=== PATIENT | male | born 1960 | race Caucasian/White ===

== ENCOUNTER 2018-03-05 11:54 | Emergency (ER) | payer OTHER ==
[~2018-03-05 11:54] MED LIST: MMW SWISH-SWAL
[2018-03-05 11:58] VITALS: BP 136/78; PULSE 78; RESP 16; TEMP 97.2; O2SAT 100
[2018-03-05] MEDS ORDERED: NEOM1SOL7 RIGHT EAR (12:17)
--- NOTE | 2018-03-05 12:21 | PD ---
HPI Chief Complaint: ENT Complaint Time Seen by Provider: 12:08 Travel History International Travel<30 days: No Contact w/Intl Traveler<30days: No Traveled to known affect area: No History of Present Illness HPI This is a 57-year-old male who presents for evaluation of right ear pain. Symptoms started 3 days ago. He reports a throbbing pain in his right ear canal which is constant worse with otic manipulation. Denies any drainage from the ear. Denies any recent travel or recent swimming. Denies any fevers or chills. Denies any cough, congestion, sore throat. He has no other complaints at this time. PFSH Past Medical History Cancer: Yes (SQUAMOUS CELL MOUTH) Neurologic: Yes (NERVE DAMAGE LEFT SHOULDER ) Past Surgical History Other Surgery: Yes (CANCER REMOVAL FROM LEFT NECK, SHOULDER, TONGUE, LEFT RADICAL NECK DISSECT) Social History Alcohol Use: No Tobacco Use: Yes (/ PPD) Substance Use: No Allergies-Medications (Allergen,Severity, Reaction): Coded Allergies: cephalexin (Unverified Adverse Reaction, Intermediate, RASH, 07/06/17) *MDRO Multi-Drug Resistant Organism (Verified Adverse Reaction, Unknown, ) MRSA back wound 08/2015 Reported Meds & Prescriptions Reported Meds & Active Scripts Active Pistxfsn-Zvrmrsreh-JP Otic Drops 3.5-10,000-1 Mg-Units-% Soln 4 Drop RIGHT EAR QID 7 Days Magic Mouthwash-Diphenhy Formula (Lidocaine/Diphenhydr/Alum/Mg/Simeth) Ml 10 Ml SWISH-SWAL Q3H PRN MAGIC MOUTHWASH=MIX 1/3 VISCOUS LIDOCAINE(60 ML),1/3 MAALOX(60 ML),AND 1/3BENADRYL(60 ML) TO EQUAL 180 ML TOTAL. Review of Systems General / Constitutional: No: Fever, Chills HENT: Positive: Earache, No: Sore Throat, Congestion, Ear Discharge Respiratory: No: Cough Physical Exam Narrative GENERAL: Well-developed well-nourished male in no acute distress SKIN: Warm and dry. HEAD: Atraumatic. Normocephalic. EYES: Pupils equal and round. No scleral icterus. No injection or drainage. ENT: No nasal bleeding or discharge. Mucous membranes pink and moist. The right external ear canal is erythematous and mildly edematous. Unable to visualize tympanic membrane secondary to patient intolerance for examination. Left tympanic membrane appears normal without erythema or fluid levels. Previous tongue surgery noted with some tissue excision. NECK: Trachea midline. No JVD. No lymphadenopathy. Neck supple full range of motion. CARDIOVASCULAR: Regular rate and rhythm. No murmur appreciated. RESPIRATORY: No accessory muscle use. Clear to auscultation. Breath sounds equal bilaterally. Data Data Last Documented VS Vital Signs Date Time Temp Pulse Resp B/P (MAP) Pulse Ox O2 Delivery O2 Flow Rate FiO2 03/05/18 11:58 97.2 78 16 136/78 (97) 100 Orders Orders Ed Discharge Order (03/05/18 12:18) Ketorolac Inj (Toradol Inj) (03/05/18 12:30) MDM Medical Decision Making Medical Screen Exam Complete: Yes Emergency Medical Condition: Yes Medical Record Reviewed: Yes Differential Diagnosis Otitis externa, otitis media, mastoiditis, referred dental pain, malignant otitis externa, foreign body Narrative Course Examination reveals right otitis externa however I am unable to complete the examination of observing the tympanic membrane and ensuring that no foreign bodies are present in the right ear secondary to patient pain during examination. Therefore I have recommended that he follow-up in 1 week with his primary care physician for recheck after he has completed his course of antibiotics. He is stable for discharge. Diagnosis Primary Impression: Right otitis externa Additional Instructions: Medication as prescribed. Tylenol Motrin for pain. Avoid getting water in right ear canal. Follow-up with primary care physician in 1 week. Return for any emergent medical conditions. Med/Other Pt SpecificInfo: Prescription(s) given Scripts Awjeqpox-Pzsjbsycf-TS Otic Drops (Axveuwfp-Phcqofcec-UL Otic Drops) 3.5-10,000- 1 Mg-Units-% Soln 4 DROP RIGHT EAR QID for Infection for 7 Days, BOTTLE 0 Refills Prov: Adrian Graf MD 03/05/18 Disposition: 01 DISCHARGE HOME Condition: Stable Mono Glaser Mar 05, 2018 12:21
[2018-03-05] MEDS ORDERED: KETOROLAC TROMETHAMINE 60 MG/2 ML (IM) VIAL IM ONE (12:30)
== END 2018-03-05 13:03 | disposition home or self-care (01) ==
LOC: NEPD 11:54
DX: H60.91 Unspecified otitis externa, right ear (principal); F17.200 Nicotine dependence, unspecified, uncomplicated
CPT/HCPCS: 96372; 99283; J1885

== ENCOUNTER 2018-03-16 14:59 | Emergency (ER) | payer OTHER ==
[~2018-03-16 14:59] MED LIST changes: +NEOM1SOL7 RIGHT EAR
[2018-03-16 15:09] VITALS: BP 143/69; PULSE 72; RESP 16; TEMP 98.2; O2SAT 100
[2018-03-16] MEDS ORDERED: MUPI2%T TOPICAL (15:42)
[2018-03-16] MEDS ORDERED: BACT800T5 PO (15:42)
--- NOTE | 2018-03-16 15:49 | PD ---
HPI Chief Complaint: Skin Problem Time Seen by Provider: 15:21 Travel History International Travel<30 days: No Contact w/Intl Traveler<30days: No Traveled to known affect area: No History of Present Illness HPI 57-year-old male with history of MRSA presents to the emergency room for evaluation of multiple skin lesions that started a few days ago. Patient states he bumped his right lower leg against a chair and a short time later developed a small abscess. The abscess began to drain on its own. Patient reports significant, throbbing pain around the ankle that is worse when he stands up. He has not taken anything for symptoms. He also reports no drainage behind his left ear and on the outer part of his right ear. States it is also extremely uncomfortable. He stopped showering because he thought the water was worsening. He denies any fever, chills, nausea, vomiting. PFSH Past Medical History Medical History: Denies Significant Hx Cancer: Yes (SQUAMOUS CELL MOUTH) Neurologic: Yes (NERVE DAMAGE LEFT SHOULDER ) Tetanus Vaccination: < 5 Years Past Surgical History Other Surgery: Yes (CANCER REMOVAL FROM LEFT NECK, SHOULDER, TONGUE, LEFT RADICAL NECK DISSECT) Social History Alcohol Use: No Tobacco Use: Yes (1/2 PPD) Substance Use: No Allergies-Medications (Allergen,Severity, Reaction): Coded Allergies: cephalexin (Unverified Adverse Reaction, Intermediate, RASH, 03/16/18) *MDRO Multi-Drug Resistant Organism (Verified Adverse Reaction, Unknown, ) MRSA back wound 08/2015 Reported Meds & Prescriptions Reported Meds & Active Scripts Active Bactrim DS (Sulfamethoxazole-Trimethoprim) 800-160 Mg Tab 1 Tab PO BID Bactroban Topical (Mupirocin) 22 Gm Cream 1 Applic TOPICAL BID Review of Systems Except as stated in HPI: all other systems reviewed are Neg Physical Exam Narrative GENERAL: Well-nourished, well-developed male in no acute distress. Afebrile. Ambulatory. SKIN: Focused skin assessment warm/dry. Significant yellow, crusting, and purulent drainage originating from a wound at the top of the left ear and also at the opening of the right ear canal. There is an indurated area in the right lower funk which measures about 2 cm in diameter. It is fluctuant with pointing and spontaneous drainage. There is surrounding erythema but no lymphangitis. HEAD: Normocephalic. EYES: No scleral icterus. No injection or drainage. NECK: Supple, trachea midline. No JVD or lymphadenopathy. EARS: There is significant impetiginization of the right external ear canal. Bilateral tympanic membranes without erythema, dullness or perforation. CARDIOVASCULAR: Regular rate and rhythm without murmurs, gallops, or rubs. RESPIRATORY: Breath sounds equal bilaterally. No accessory muscle use. Data Data Last Documented VS Vital Signs Date Time Temp Pulse Resp B/P (MAP) Pulse Ox O2 Delivery O2 Flow Rate FiO2 03/16/18 15:09 98.2 72 16 143/69 (93) 100 MDM Medical Decision Making Medical Screen Exam Complete: Yes Emergency Medical Condition: Yes Medical Record Reviewed: Yes Differential Diagnosis Abscess, impetigo, MRSA, cellulitis Narrative Course 57-year-old male presents to the emergency room for evaluation of multiple skin lesions throughout his body. Physical exam reveals 7 cm in diameter cellulitis to the right anterior funk without abscess. It is spontaneously draining. No lymphangitis. He also has impetiginization of bilateral ear pinnae. Patient has history of MRSA susceptible to Bactrim. He will be discharged with prescriptions for Bactrim and mupirocin. Told to follow-up with a primary care physician or return for worsening symptoms. He understands and agrees to plan. Diagnosis Primary Impression: Cellulitis of right leg Additional Impression: Impetigo Referrals: Primary Care Physician Additional Instructions: Apply ointment to the wounds around the ears. Bactrim as directed, until gone. Follow-up with a primary care physician. Return for worsening symptoms. Med/Other Pt SpecificInfo: Prescription(s) given Scripts Sulfamethoxazole-Trimethoprim (Bactrim DS) 800-160 Mg Tab 1 TAB PO BID for Infection, #20 TAB 0 Refills Prov: Lisa Verdugo DO 03/16/18 Mupirocin Topical (Bactroban Topical) 22 Gm Cream 1 APPLIC TOPICAL BID for Mgmt Bacterial Infection, #1 TUBE 0 Refills Prov: Lisa Verdugo DO 03/16/18 Disposition: 01 DISCHARGE HOME Condition: Stable Chandni Ferraro Mar 16, 2018 15:49
== END 2018-03-16 16:03 | disposition home or self-care (01) ==
LOC: NEPK 14:59
DX: L03.115 Cellulitis of right lower limb (principal); L01.00 Impetigo, unspecified; F17.200 Nicotine dependence, unspecified, uncomplicated; Z86.14 Personal history of Methicillin resistant Staphylococcus aureus infection
CPT/HCPCS: 99283

== ENCOUNTER 2018-04-27 08:04 | Inpatient (IN) | payer OTHER, MEDICARE ==
[~2018-04-27] VITALS: Ht 188 cm; Wt 85.2 kg
[~2018-04-27 08:04] MED LIST changes: +BACT800T5 PO; -MMW SWISH-SWAL; +MUPI2%T TOPICAL; -NEOM1SOL7 RIGHT EAR
[2018-04-27 08:08] VITALS: BP 140/81; PULSE 71; RESP 20; TEMP 96.6; O2SAT 98
[2018-04-27] MEDS ORDERED: VANCOMYCIN INJ 1,000 MG in SODIUM CHLOR 0.9% 250 ML INJ 250 ML IV ONE (09:30)
--- NOTE | 2018-04-27 09:34 | PD ---
HPI Chief Complaint: Skin Problem Time Seen by Provider: 09:09 Travel History International Travel<30 days: No Contact w/Intl Traveler<30days: No Traveled to known affect area: No History of Present Illness HPI This patient complains of infection in his right foot. Started 5 days ago when he scraped it and open up the skin. He has history of MRSA infections. He denies fever. Periodically drains some fluid. Patient has history of head and neck squamous cell cancer. The cancer has recently returned according the patient. He seen oncology recently and is getting referred to ENT. Symptom severity is moderate. He has pain in the right foot. He is got redness and warmth. No alleviating factors. No exacerbating factors. PFSH Past Medical History Anxiety: Yes Cancer: Yes (SQUAMOUS CELL MOUTH) Diminished Hearing: No Neurologic: Yes (NERVE DAMAGE LEFT SHOULDER ) Tetanus Vaccination: > 5 Years Influenza Vaccination: Yes Past Surgical History Oral Surgery: Yes Tonsillectomy: Yes Other Surgery: Yes (CANCER REMOVAL FROM LEFT NECK, SHOULDER, TONGUE, LEFT RADICAL NECK DISSECT) Social History Alcohol Use: No Tobacco Use: Yes (/2 PPD) Substance Use: No Allergies-Medications (Allergen,Severity, Reaction): Coded Allergies: cephalexin (Verified Adverse Reaction, Intermediate, RASH, 04/27/18) *MDRO Multi-Drug Resistant Organism (Verified Adverse Reaction, Unknown, ) MRSA back wound 08/2015 Reported Meds & Prescriptions Reported Meds & Active Scripts Active No Active Prescriptions or Reported Medications Review of Systems General / Constitutional: No: Fever Eyes: No: Visual changes HENT: No: Headaches Cardiovascular: No: Chest Pain or Discomfort Respiratory: No: Shortness of Breath Gastrointestinal: No: Abdominal Pain Genitourinary: No: Dysuria Musculoskeletal: Positive: Pain Skin: No Rash Neurologic: No: Weakness Psychiatric: No: Depression Endocrine: No: Polydipsia Hematologic/Lymphatic: No: Easy Bruising Physical Exam Narrative GENERAL: Well-nourished, well-developed patient in no apparent distress. SKIN: Focused skin assessment reveals no rash and nodules. Skin is Warm and dry. HEAD: Atraumatic. Normocephalic. EYES: Pupils equal and round. No scleral icterus. No injection or drainage. ENT: No nasal bleeding or discharge. Mucous membranes pink and moist. NECK: Trachea midline. No JVD. There is postsurgical scarring in the left side of his neck. There is also a masslike area on the left mandible CARDIOVASCULAR: Regular rate and rhythm. No murmur appreciated. RESPIRATORY: No accessory muscle use. Clear to auscultation. Breath sounds equal bilaterally. GASTROINTESTINAL: Abdomen soft, non-tender, nondistended. Hepatic and splenic margins not palpable. MUSCULOSKELETAL: No obvious deformities. No clubbing. No cyanosis. No edema. There is erythema warmth and tenderness of the dorsum of the right foot. There is a central discolored area as well. No fluctuance or active drainage. NEUROLOGICAL: Awake and alert. No obvious cranial nerve deficits. Motor grossly within normal limits. Normal speech. PSYCHIATRIC: Appropriate mood and affect; insight and judgment normal. Data Data Last Documented VS Vital Signs Date Time Temp Pulse Resp B/P (MAP) Pulse Ox O2 Delivery O2 Flow Rate FiO2 04/27/18 08:08 96.6 71 20 140/81 (100) 98 Orders Orders Iv Access Insert/Monitor (04/27/18 09:17) Blood Culture (04/27/18 09:17) Complete Blood Count With Diff (04/27/18 09:17) Basic Metabolic Panel (Bmp) (04/27/18 09:17) Vancomycin Inj (Vancomycin Inj) (04/27/18 09:30) Foot, Limited (2vws) (04/27/18 ) Morphine Inj (Morphine Inj) (04/27/18 10:30) Ondansetron Odt (Zofran Odt) (04/27/18 10:30) Labs Laboratory Tests Test 04/27/18 09:00 White Blood Count 8.3 TH/MM3 Red Blood Count 4.70 MIL/MM3 Hemoglobin 14.7 GM/DL Hematocrit 43.8 % Mean Corpuscular Volume 93.1 FL Mean Corpuscular Hemoglobin 31.3 PG Mean Corpuscular Hemoglobin Concent 33.6 % Red Cell Distribution Width 12.8 % Platelet Count 188 TH/MM3 Mean Platelet Volume 8.2 FL Neutrophils (%) (Auto) 75.0 % Lymphocytes (%) (Auto) 15.0 % Monocytes (%) (Auto) 7.6 % Eosinophils (%) (Auto) 1.9 % Basophils (%) (Auto) 0.5 % Neutrophils # (Auto) 6.2 TH/MM3 Lymphocytes # (Auto) 1.2 TH/MM3 Monocytes # (Auto) 0.6 TH/MM3 Eosinophils # (Auto) 0.2 TH/MM3 Basophils # (Auto) 0.0 TH/MM3 CBC Comment DIFF FINAL Differential Comment Blood Urea Nitrogen 16 MG/DL Creatinine 1.39 MG/DL Random Glucose 93 MG/DL Calcium Level 8.9 MG/DL Sodium Level 139 MEQ/L Potassium Level 3.9 MEQ/L Chloride Level 104 MEQ/L Carbon Dioxide Level 26.8 MEQ/L Anion Gap 8 MEQ/L Estimat Glomerular Filtration Rate 52 ML/MIN MDM Medical Decision Making Medical Screen Exam Complete: Yes Emergency Medical Condition: Yes Medical Record Reviewed: Yes Differential Diagnosis Cellulitis, abscess, allergic reaction Narrative Course I have reviewed the patient's electronic medical record. Patient is here for infected lesion in February 2018 IV placed and blood cultures obtained Labs sent I gave him 1 g IV vancomycin I reviewed his right foot x-rays which are normal Lab studies are normal. Patient was sent here by his primary physician for admission for IV antibiotics. I think this is reasonable. I think he could benefit from continued IV antibiotics. Also possibly podiatry evaluation to consider I&D. Central area may contain some pus. Call is been placed to hospitalist to discuss Diagnosis Primary Impression: Cellulitis of right foot Admitting Information Admitting Physician Requests: Admit Scripts No Active Prescriptions or Reported Meds Soham Brandon MD Apr 27, 2018 09:34
[2018-04-27 09:42] LABS: AUTOMATED NEUTROPHIL # 6.2 TH/MM3 (1.8-7.7); BASOPHIL % 0.5 % (0.0-2.0); EOSINOPHIL # 0.2 TH/MM3 (0-0.4); EOSINOPHIL % 1.9 % (0.0-4.0); HEMATOCRIT 43.8 % (39.0-51.0); HEMOGLOBIN 14.7 GM/DL (13.0-17.0); LYMPHOCYTE # 1.2 TH/MM3 (1.0-4.8); MEAN CELL VOLUME 93.1 FL (80.0-100.0); MEAN CORPUSCULAR HEMOGLOBIN 31.3 PG (27.0-34.0); MEAN CORPUSCULAR HGB CONC 33.6 % (32.0-36.0); MEAN PLATELET VOLUME 8.2 FL (7.0-11.0); MONO % 7.6 % (0.0-8.0); MONOCYTE # 0.6 TH/MM3 (0-0.9); PLATELET COUNT 188 TH/MM3 (150-450); RED CELL DISTRIBUTION WIDTH 12.8 % (11.6-17.2); WHITE BLOOD COUNT 8.3 TH/MM3 (4.0-11.0)
[2018-04-27 10:08] LABS: BICARBONATE 26.8 MEQ/L (21.0-32.0); CALCIUM 8.9 MG/DL (8.5-10.1); CREATININE 1.39 MG/DL (0.60-1.30)
--- NOTE | 2018-04-27 10:11 | RADRPT ---
EXAM DATE: 04/27/2018 9:59 AM EDT AGE/SEX: 57 years / Male INDICATIONS: Patient hit top of foot on bed frame 5 days ago. Pain, swelling and sore on top of maxi ent's foot. CLINICAL DATA: This is the patient's initial encounter. Patient reports that signs and symptoms have been present for 4 - 6 days and indicates a pain score of 10/10. MEDICAL/SURGICAL HISTORY: None. None. COMPARISON: No prior [facility] exams available for comparison. FINDINGS: Bony structures are intact and in normal alignment. Osseous density is normal. Soft tissues are unre markable. No radiopaque foreign bodies seen. CONCLUSION: Negative examination Electronically signed by: Te Harrell MD 04/27/2018 10:09 AM EDT
[2018-04-27] MEDS ORDERED: ONDANSETRON ODT 4 MG TAB PO ONE (10:30)
[2018-04-27] MEDS ORDERED: MORPHINE SULFATE 4 MG/ML INJ IV PUSH ONE (10:30)
[2018-04-27 12:00] VITALS: BP 116/67; PULSE 60; RESP 17; O2SAT 96
--- NOTE | 2018-04-27 12:14 | HHI.HP ---
[facility] Unknown Admission Diagnosis R foot cellulitis Diagnoses: Travel History International Travel<30 Days: No Contact w/Intl Traveler <30 Da: No Traveled to Known Affected Are: No History of Present Illness 57 years old male presented to the ED with a right dorsal foot infection which started 5 days ago after he scraped his foot with his own bed, patient was referred from his PCP office to get IV antibiotic for what suspecting MRSA infection, patient denied significant fever or chills he reported severe pain in his foot close to 9 out of 10, he reported multiple area of skin abscess and skin infection over his called arms chest and legs in different age of healing some of it with crusted drainage also suspecting of's strep infection. 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 Left shoulder surgery Allergies: Coded Allergies: cephalexin (Verified Adverse Reaction, Intermediate, RASH, 04/27/18) *MDRO Multi-Drug Resistant Organism (Verified Adverse Reaction, Unknown, ) MRSA back wound 08/2015 Family History Brother of esophageal cancer, grand parent of lymphoma or leukemia Social History Smoke half pack per day, he quit drinking alcohol [address] Physical Exam Vital Signs Vital Signs Date Time Temp Pulse Resp B/P (MAP) Pulse Ox O2 Delivery O2 Flow Rate FiO2 04/27/18 08:08 96.6 71 20 140/81 (100) 98 Physical Exam GENERAL: This is a well-nourished, well-developed patient, in no apparent distress. SKIN: Right foot dorsal surface wound infection with erythema about 10 cm tenderness, the center is with bloody drainage, also patient has multiple honey crusted scallop infection and the run the left ear HEAD: Atraumatic. Normocephalic. EYES: Pupils equal round and reactive. Extraocular motions intact. No scleral icterus. ENT: Nose without bleeding, or drainage, Airway patent. NECK: Trachea midline. Supple CARDIOVASCULAR: Regular rate and rhythm without murmurs, gallops, or rubs. RESPIRATORY: Fair air entry bilaterally. No wheezes, rales, or rhonchi. GASTROINTESTINAL: Abdomen soft, non-tender, nondistended. Positive bowel sounds MUSCULOSKELETAL: Extremities without clubbing, cyanosis, or edema. Pedal pulses appreciated, right foot infection as mentioned above NEUROLOGICAL: Awake and alert. Moves all extremity. Normal speech.no focal neurological deficit Laboratory Laboratory Tests Test 04/27/18 09:00 White Blood Count 8.3 Red Blood Count 4.70 Hemoglobin 14.7 Hematocrit 43.8 Mean Corpuscular Volume 93.1 Mean Corpuscular Hemoglobin 31.3 Mean Corpuscular Hemoglobin Concent 33.6 Red Cell Distribution Width 12.8 Platelet Count 188 Mean Platelet Volume 8.2 Neutrophils (%) (Auto) 75.0 Lymphocytes (%) (Auto) 15.0 Monocytes (%) (Auto) 7.6 Eosinophils (%) (Auto) 1.9 Basophils (%) (Auto) 0.5 Neutrophils # (Auto) 6.2 Lymphocytes # (Auto) 1.2 Monocytes # (Auto) 0.6 Eosinophils # (Auto) 0.2 Basophils # (Auto) 0.0 CBC Comment DIFF FINAL Differential Comment Blood Urea Nitrogen 16 Creatinine 1.39 Random Glucose 93 Calcium Level 8.9 Sodium Level 139 Potassium Level 3.9 Chloride Level 104 Carbon Dioxide Level 26.8 Anion Gap 8 Estimat Glomerular Filtration Rate 52 Date/Time Source Procedure Growth Status 04/27/18 09:10 Blood Peripheral Aerobic Blood Culture Pending Received 04/27/18 09:10 Blood Peripheral Anaerobic Blood Culture Pending Received Result Diagram: 04/27/18 0904/27/18 09 Imaging Last Impressions Foot X-Ray 04/27/18 0000 Signed Impressions: CONCLUSION: Negative examination Caprini VTE Risk Assessment Caprini VTE Risk Assessment: Mod/High Risk (score >= 2) Caprini Risk Assessment Model Point Value = 1 Point Value = 2 Point Value = 3 Point Value = 5 Age 41-60 Minor surgery BMI > 25 kg/m2 Swollen legs Varicose veins or History of unexplained or recurrent spontaneous Oral contraceptives or hormone replacement Sepsis (< 1 month) Serious lung disease, including pneumonia (< 1 month) Abnormal pulmonary function Acute myocardial infarction Congestive heart failure (< 1 month) History of inflammatory bowel disease Medical patient at bed rest Age 61-74 Arthroscopic surgery Major open surgery (> 45 min) Laparoscopic surgery (> 45 min) Malignancy Confined to bed (> 72 hours) Immobilizing plaster cast Central venous access Age >= 75 History of VTE Family history of VTE Factor V Leiden Prothrombin [id number] Lupus anticoagulant Anticardiolipin antibodies Elevated serum homocysteine Heparin-induced thrombocytopenia Other congenital or acquired thrombophilia Stroke (< 1 month) Elective arthroplasty Hip, pelvis, or leg fracture Acute spinal cord injury (< 1 month) Prophylaxis Regimen Total Risk Factor Score Risk Level Prophylaxis Regimen 0-1 Low Early ambulation 2 Moderate Order ONE of the following: *Sequential Compression Device (SCD) *Heparin 5000 units SQ BID 3-4 Higher Order ONE of the following medications: *Heparin 5000 units SQ TID *Enoxaparin/Lovenox 40 mg SQ daily (WT < 150 kg, CrCl > 30 mL/min) *Enoxaparin/Lovenox 30 mg SQ daily (WT < 150 kg, CrCl > 10-29 mL/min) *Enoxaparin/Lovenox 30 mg SQ BID (WT < 150 kg, CrCl > 30 mL/min) AND/OR *Sequential Compression Device (SCD) 5 or more Highest Order ONE of the following medications: *Heparin 5000 units SQ TID (Preferred with Epidurals) *Enoxaparin/Lovenox 40 mg SQ daily (WT < 150 kg, CrCl > 30 mL/min) *Enoxaparin/Lovenox 30 mg SQ daily (WT < 150 kg, CrCl > 10-29 mL/min) *Enoxaparin/Lovenox 30 mg SQ BID (WT < 150 kg, CrCl > 30 mL/min) AND *Sequential Compression Device (SCD) Assessment and Plan Assessment and Plan 57 years old male with history of oral squamous cell carcinoma, and multiple skin infection presented today with Right dorsal surface foot cellulitis/abscess with severe pain Multiple skin infection/crusted drainage from lesion rule out MRSA/strep infection H/O oral squamous cell carcinoma Tobacco abuse DVT prophylaxis will place on chemical with heparin due to history of cancer in the past, start tomorrow in case will need drainage I&D Plan: Admit for observation Start on vancomycin with pharmacy to dose Contact isolation Pain management with Percocet and morphine Consult podiatry for possible need for I&D Consult ID for chronic skin infection possibly MRSA DVT prophylaxis with heparin Benjamin Yarbrough MD Apr 27, 2018 12:14
[2018-04-27] MEDS ORDERED: SENNOSIDES 8.6 MG TAB PO PRN (12:15)
[2018-04-27] MEDS ORDERED: Vancomycin Consult Pharmacy 1 EA OTHER SCH (12:15)
[2018-04-27] MEDS ORDERED: MAGNESIUM HYDROXIDE SUSP 30 ML CUP PO PRN (12:15)
[2018-04-27] MEDS ORDERED: NALOXONE HCL 0.4 MG/ML AMP IV PUSH PRN (12:15)
[2018-04-27] MEDS: HEPARIN SODIUM - SQ 10,000 UNITS/ML VIAL SQ SCH ×2 (13:00→21:52)
[2018-04-27 14:00] VITALS: BP 118/67; PULSE 65; RESP 19; O2SAT 97
[2018-04-27 14:40] VITALS: BP 127/79; PULSE 61; RESP 18; TEMP 98.8; O2SAT 100
[2018-04-27 16:52] VITALS: BP 94/52; PULSE 64; TEMP 98.2; O2SAT 99
[2018-04-27] MEDS: ACETAMINOPHEN/HYDROcodone 325 MG/10 MG TAB PO PRN (18:13)
[2018-04-27 20:00] VITALS: BP 85/52; PULSE 59; RESP 20; TEMP 98.8; O2SAT 97
[2018-04-27] MEDS: DOCUSATE SODIUM 50 MG/SENNA 8.6 MG TAB PO SCH (21:00)
[2018-04-28] VITALS (7 sets, daily range): BP systolic 82–108; BP diastolic 49–64; PULSE 44–52; RESP 12–20; TEMP 95.5–98.8; O2SAT 97–100
[2018-04-28] MEDS ORDERED: KETOROLAC TROMETHAMINE 30 MG/ML (IVP) VIAL IV PUSH ONE (01:30)
[2018-04-28] MEDS: VANCOMYCIN INJ 1,250 MG in SODIUM CHLOR 0.9% 250 ML INJ 250 ML IV SCH ×2 (01:52→23:06)
[2018-04-28] MEDS: SODIUM CHLOR 0.9% 1000 ML INJ 1,000 ML IV SCH ×2 (01:52→14:51)
[2018-04-28] MEDS: HEPARIN SODIUM - SQ 10,000 UNITS/ML VIAL SQ SCH ×3 (06:11→21:00)
--- NOTE | 2018-04-28 09:59 | HHI.PR ---
Subjective Remarks Follow-up foot wound, cellulitis. The patient reports pain in his right foot. He states that he was not able to get his pain medication overnight because of low blood pressure. He denies fever, chills, night sweats. He has multiple wounds including on his nose and behind his left ear. Objective Vitals Vital Signs Date Time Temp Pulse Resp B/P (MAP) Pulse Ox O2 Delivery O2 Flow Rate FiO2 04/28/18 09:09 97.9 45 12 100/61 (74) 97 04/28/18 05:10 97.5 52 20 82/50 (61) 97 04/28/18 00:53 95.5 52 18 102/62 (75) 97 04/27/18 20:00 98.8 59 20 85/52 (63) 97 04/27/18 16:52 98.2 64 94/52 (66) 99 04/27/18 14:40 98.8 61 18 127/79 (95) 100 04/27/18 14:35 04/27/18 14:00 65 19 118/67 (84) 97 Room Air 04/27/18 12:00 60 17 116/67 (83) 96 Room Air I/O 04/27/18 04/27/18 04/27/18 04/28/18 04/28/18 04/28/18 07:00 15:00 23:00 07:00 15:00 23:00 Intake Total 250 ml 480 ml Output Total 2000 ml Balance 250 ml -1520 ml Intake Oral 480 ml IV Total 250 ml Output Urine Total 2000 ml # Bowel Movements 0 Result Diagram: 04/27/18 0900 04/27/18 0900 Imaging Last Impressions Foot X-Ray 04/27/18 0000 Signed Impressions: CONCLUSION: Negative examination Objective Remarks General: No acute distress. Heart: Regular rate and rhythm. No murmur. Lungs: Clear to auscultation bilaterally. No wheezes, rales, or rhonchi. Breathing is nonlabored. Abdomen: Soft, nontender, nondistended. Extremities: No left lower extremity edema. Right lower extremity with edema extending from the foot to the mid funk. There is tenderness to palpation of the dorsum of the foot as well as the anterior lower leg. There is erythema surrounding an open wound on the dorsum of the foot. There is drainage present on the bandage. Psych: Alert and oriented. Neuro: Normal speech. No focal deficits noted. Procedures None Urinary Catheter: No Vascular Central Line Catheter: No A/P Assessment and Plan 1. Right foot cellulitis/abscess, wound: Patient reporting significant pain in the foot. He has history of MRSA infection previously. Continue vancomycin. Infectious disease consult pending. Consult podiatry. 2. Hypotension: Continue IV fluids. Blood pressure is slightly better this morning. 3. Renal insufficiency: Uncertain if acute or chronic. Monitor BUN and creatinine. Labs are pending today. Continue IV fluids. 4. Multiple skin lesions: Patient has areas of scab with surrounding erythema on the nose and behind the left ear. There is also a scabbed wound on the external left ear. 5. DVT prophylaxis: Heparin. Soham Burnette MD Apr 28, 2018 09:59
[2018-04-28 11:38] LABS: AUTOMATED NEUTROPHIL # 2.5 TH/MM3 (1.8-7.7); BASOPHIL % 0.7 % (0.0-2.0); EOSINOPHIL # 0.1 TH/MM3 (0-0.4); EOSINOPHIL % 3.6 % (0.0-4.0); HEMOGLOBIN 12.6 GM/DL (13.0-17.0); LYMPH % 23.5 % (9.0-44.0); LYMPHOCYTE # 0.9 TH/MM3 (1.0-4.8); MEAN CELL VOLUME 91.1 FL (80.0-100.0); MEAN CORPUSCULAR HEMOGLOBIN 30.2 PG (27.0-34.0); MEAN CORPUSCULAR HGB CONC 33.2 % (32.0-36.0); MEAN PLATELET VOLUME 7.8 FL (7.0-11.0); MONO % 8.1 % (0.0-8.0); MONOCYTE # 0.3 TH/MM3 (0-0.9); NEUT % 64.1 % (16.0-70.0); PLATELET COUNT 147 TH/MM3 (150-450); RED BLOOD COUNT 4.17 MIL/MM3 (4.50-5.90); RED CELL DISTRIBUTION WIDTH 12.9 % (11.6-17.2); WHITE BLOOD COUNT 3.9 TH/MM3 (4.0-11.0)
[2018-04-28 12:01] LABS: CALCIUM 8.7 MG/DL (8.5-10.1); CREATININE 1.42 MG/DL (0.60-1.30)
--- NOTE | 2018-04-28 12:56 | PD.ID.CON ---
History of Present Illness Service ID Consult Requested By Dr Yarbrough Reason for Consult R foot infx Primary Care Physician Unknown Diagnoses: History of Present Illness 57 yo male noel h/o recurrent oral cancer presented with draining lesion on the top of his R foot. 5 days prior bumped it over his bed He co pain , redness, swelling His BP is low He endorses multiple staph skin infections in the last few mos No fever WBC is low. 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 Past Medical History oral ca, recurrent Past Surgical History oral surgery Active Ordered Medications Medications where reviewed in EMR Antibiotics Include: vanco Family History reviewed non contirbutory to current issue Social History tobacco + 1/2 ppd denies ETOH denies drugs Physical Exam Vital Signs Vital Signs Date Time Temp Pulse Resp B/P (MAP) Pulse Ox O2 Delivery O2 Flow Rate FiO2 04/28/18 11:53 98.1 50 16 84/49 (61) 98 04/28/18 09:09 97.9 45 12 100/61 (74) 97 04/28/18 05:10 97.5 52 20 82/50 (61) 97 04/28/18 00:53 95.5 52 18 102/62 (75) 97 04/27/18 20:00 98.8 59 20 85/52 (63) 97 04/27/18 16:52 98.2 64 94/52 (66) 99 04/27/18 14:40 98.8 61 18 127/79 (95) 100 04/27/18 14:35 04/27/18 14:00 65 19 118/67 (84) 97 Room Air Physical Exam CONSTITUTIONAL/GENERAL: This is an adequately nourished patient, in no apparent distress. TUBES/LINES/DRAINS: SKIN: No jaundice, rashes, or lesions. Ecchymoses on upper extremities. No wounds seen anteriorly. Skin temperature appropriate. Not diaphoretic. HEAD: Atraumatic. Normocephalic. EYES: Pupils equal and round and reactive. Extraocular motions intact. No scleral icterus. No injection or drainage. Fundi not examined. ENT: Hearing grossly normal. Nose without bleeding or purulent drainage. Dentition poor Partially excised toungue. Oral ulcer Firm small regional lymph nodules NECK: Trachea midline. Supple, nontender. No palpable thyroid enlargement or nodularity. CARDIOVASCULAR: Regular rate and rhythm without murmurs, gallops, or rubs. No JVD. Peripheral pulses symmetric. RESPIRATORY/CHEST: Symmetric, unlabored respirations. Clear to auscultation. Breath sounds equal bilaterally. No wheezes, rales, or rhonchi. GASTROINTESTINAL: Abdomen soft, non-tender, nondistended. No hepato-splenomegaly , or palpable masses. No guarding. Bowel sounds present. GENITOURINARY: Without palpable bladder distension . MUSCULOSKELETAL: Extremities without clubbing, cyanosis No joint tenderness or effusion noted. No calf tenderness. No mottling or clubbing. STATUS LOCALIS: R foot with open small 1 cm ulcer with small amount of purulemce, surrounded with erythema + Ipsilateral lymph nodule R groin LYMPHATICS: No palpable cervical or supraclavicular adenopathy. NEUROLOGICAL: Awake and alert. Motor and sensory grossly within normal limits. Follows commands. Clear speech. Moves all extremities. PSYCHIATRIC: No obvious anxiety/depression. no apparent hallucinations or other psychotic thought process. Laboratory Laboratory Tests Test 04/28/18 11:17 White Blood Count 3.9 Red Blood Count 4.17 Hemoglobin 12.6 Hematocrit 38.0 Mean Corpuscular Volume 91.1 Mean Corpuscular Hemoglobin 30.2 Mean Corpuscular Hemoglobin Concent 33.2 Red Cell Distribution Width 12.9 Platelet Count 147 Mean Platelet Volume 7.8 Neutrophils (%) (Auto) 64.1 Lymphocytes (%) (Auto) 23.5 Monocytes (%) (Auto) 8.1 Eosinophils (%) (Auto) 3.6 Basophils (%) (Auto) 0.7 Neutrophils # (Auto) 2.5 Lymphocytes # (Auto) 0.9 Monocytes # (Auto) 0.3 Eosinophils # (Auto) 0.1 Basophils # (Auto) 0.0 CBC Comment DIFF FINAL Differential Comment Blood Urea Nitrogen 16 Creatinine 1.42 Random Glucose 80 Calcium Level 8.7 Sodium Level 141 Potassium Level 4.0 Chloride Level 105 Carbon Dioxide Level 30.0 Anion Gap 6 Estimat Glomerular Filtration Rate 51 Date/Time Source Procedure Growth Status 04/27/18 09:10 Blood Peripheral Aerobic Blood Culture - Preliminary NO GROWTH IN 1 DAY Resulted 04/27/18 09:10 Blood Peripheral Anaerobic Blood Culture - Preliminary NO GROWTH IN 1 DAY Resulted Result Diagram: 04/28/18 1117 04/28/18 1117 Imaging Last Impressions Foot X-Ray 04/27/18 0000 Signed Impressions: CONCLUSION: Negative examination Assessment and Plan Assessment and Plan R foot infected wound, cellulitis Hypotension Sepsis ARF - cont vancomycin - add cefepime culture wound blood clx NS 500 bolus chk [place] Podiatry consult Merari Matt MD Apr 28, 2018 12:56
[2018-04-28] MEDS ORDERED: SODIUM CHLORID 0.9% 500 ML INJ 500 ML IV ONE (13:00)
[2018-04-28] MEDS: ACETAMINOPHEN/HYDROcodone 325 MG/5 MG TAB PO PRN (14:38)
[2018-04-28] MEDS: DOCUSATE SODIUM 50 MG/SENNA 8.6 MG TAB PO SCH ×2 (14:39→21:33)
[2018-04-28] MEDS: CEFEPIME INJ 2,000 MG in SODIUM CHLORIDE 0.9% INJ 100 ML IV SCH ×2 (14:50→21:33)
--- NOTE | 2018-04-28 16:48 | PD.CONS ---
History of Present Illness Service Foot and ankle surgery/podiatry Consult Requested By Primary Care Physician Unknown Diagnoses: History of Present Illness Dietary consulted for this 57-year-old male with past medical history of recurrent oral cancer for draining lesion to his right foot. Patient states that because he bumped over his bed he complains of pain redness and swelling. Patient states she has had multiple staph skin infections in the past few months. He denies any nausea vomiting fevers or chills. 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/2015 Past Medical History As per HPI Active Ordered Medications Current Medications Medications (Trade) Dose Ordered Sig/Travis Route Start Time Stop Time Status Last Admin (Heparin Inj) 5,000 units Q8H SQ 04/27/18 13:00 04/28/18 06:11 (Arden 5-325 Mg) 1 tab Q4H PRN PO 04/27/18 12:15 04/28/18 14:38 (Arden 10-325 Mg) 1 tab Q4H PRN PO 04/27/18 12:15 04/27/18 18:13 (Morphine Inj) 4 mg Q3H PRN IV PUSH 04/27/18 12:15 (Narcan Inj) 0.4 mg UNSCH PRN IV PUSH 04/27/18 12:15 (Sabra-Colace) 1 tab BID PO 04/27/18 21:00 04/28/18 14:39 (Milk Of Magnesia Liq) 30 ml Q12H PRN PO 04/27/18 12:15 (Senokot) 17.2 mg Q12H PRN PO 04/27/18 12:15 Pharmacy Profile Note 0 ml @ 0 mls/hr UNSCH OTHER 04/27/18 12:15 Vancomycin HCl 1250 mg/Sodium Chloride 262.5 ml @ 250 mls/hr Q18H IV 04/28/18 03:00 04/28/18 01:52 (Misc Pharmacy Ordered Lab Info) SPECIFIC LAB TO BE DRAWN:VANCO TROUGH DATE TO BE DRRamon. ONCE ONCE .XX 04/29/18 14:45 04/29/18 14:46 Sodium Chloride 1,000 ml @ 100 mls/hr Q10H IV 04/28/18 01:30 04/28/18 14:51 Cefepime HCl 2000 mg/Sodium Chloride 100 ml @ 200 mls/hr Q8H IV 04/28/18 13:00 04/28/18 14:50 Physical Exam Vital Signs Vital Signs Date Time Temp Pulse Resp B/P (MAP) Pulse Ox O2 Delivery O2 Flow Rate FiO2 04/28/18 15:47 98.8 52 20 108/64 (79) 99 04/28/18 11:53 98.1 50 16 84/49 (61) 98 04/28/18 09:09 97.9 45 12 100/61 (74) 97 04/28/18 05:10 97.5 52 20 82/50 (61) 97 04/28/18 00:53 95.5 52 18 102/62 (75) 97 04/27/18 20:00 98.8 59 20 85/52 (63) 97 04/27/18 16:52 98.2 64 94/52 (66) 99 Physical Exam GENERAL: This is a well-nourished, well-developed patient, in no apparent distress. SKIN: Right foot dorsal ulceration HEAD: Atraumatic. EYES: Pupils equal round and reactive. ENT: Airway patent. NECK: Trachea midline. RESPIRATORY: Nonlabored breathing. MUSCULOSKELETAL:. Negative Homans sign bilaterally. NEUROLOGICAL: Awake and alert. Normal speech. Lower extremity physical exam: Vascular: Dorsalis pedis 2 out of 4, posterior tibial 2 out of 4. Capillary refill time within normal limits to digits 5 bilateral foot. Edema present right foot Neuro: Gross sensation intact to bilateral lower extremity. Pinpoint sensation intact. No hyperalgesia noted to bilateral lower extremity Dermatology: Normal temperature and turgor to bilateral lower extremity. Dorsal right foot ulceration noted with associated erythema and edema. No purulent drainage upon compression. Serous drainage noted. No probe to bone. No exposed muscle tendon. +3 pitting edema noted. No fluctuance or crepitus noted. Musculoskeletal: Tender to palpation to dorsal right foot. Laboratory Laboratory Tests Test 04/28/18 11:17 04/28/18 14:26 White Blood Count 3.9 Red Blood Count 4.17 Hemoglobin 12.6 Hematocrit 38.0 Mean Corpuscular Volume 91.1 Mean Corpuscular Hemoglobin 30.2 Mean Corpuscular Hemoglobin Concent 33.2 Red Cell Distribution Width 12.9 Platelet Count 147 Mean Platelet Volume 7.8 Neutrophils (%) (Auto) 64.1 Lymphocytes (%) (Auto) 23.5 Monocytes (%) (Auto) 8.1 Eosinophils (%) (Auto) 3.6 Basophils (%) (Auto) 0.7 Neutrophils # (Auto) 2.5 Lymphocytes # (Auto) 0.9 Monocytes # (Auto) 0.3 Eosinophils # (Auto) 0.1 Basophils # (Auto) 0.0 CBC Comment DIFF FINAL Differential Comment Blood Urea Nitrogen 16 Creatinine 1.42 Random Glucose 80 Calcium Level 8.7 Sodium Level 141 Potassium Level 4.0 Chloride Level 105 Carbon Dioxide Level 30.0 Anion Gap 6 Estimat Glomerular Filtration Rate 51 Lactic Acid Level 1.2 Date/Time Source Procedure Growth Status 04/28/18 15:35 Blood Peripheral Aerobic Blood Culture Pending Received 04/28/18 15:35 Blood Peripheral Anaerobic Blood Culture Pending Received Result Diagram: 04/28/18 1117 04/28/18 1117 Assessment and Plan Assessment and Plan 57-year-old male with right foot ulceration associated edema and erythema, possible abscess Patient examined and evaluated with all questions answered No drainage noted on compression MRI right foot Depending on MRI results will perform bedside incision and drainage if necessary Continue IV antibiotics Warm compresses and elevation Dressed foot with dry sterile dressing Taina Sylvester DPM Apr 28, 2018 16:48
[2018-04-28] MEDS: ACETAMINOPHEN/HYDROcodone 325 MG/10 MG TAB PO PRN (18:37)
[2018-04-28] MEDS ORDERED: GADODIAMIDE PF 287 MG/ML 5 ML VIAL (for RAD MRI) IVCONTRAST ONE (19:28)
--- NOTE | 2018-04-28 19:43 | RADRPT ---
EXAM DATE: 04/28/2018 7:34 PM EDT AGE/SEX: 57 years / Male INDICATIONS: Osteomyelitis. CLINICAL DATA: This is the patient's initial encounter. Patient reports that signs and symptoms have been present for 1 day and indicates a pain score of 0/10. MEDICAL/SURGICAL HISTORY: Carcinoma, tongue. . Left neck cancer dissection and partial tongue d issection. COMPARISON: [facility] – [place], FOOT RIGHT LIMITED (2VWS), 04/27/2018. . TECHNIQUE: Multiplanar, multisequence MRI examination was performed without contrast and after th e intravenous administration of 15 ml Omniscan (gadodiamide) single exam dose. FINDINGS: There is focal susceptibility artifact adjacent to the base of the third and fourth digits. This is f rom uncertain etiology. Overall T1 signal within all of the bones of the foot are within normal limit s. There is mild increased T2 signal within the distal diaphysis of the first metatarsal measuring ap proximately 9 mm. This area also demonstrates a mild degree of enhancement. No other area of enhancem ent is identified within the bones. There is relatively diffuse subcutaneous edema throughout the patricia t most prominent dorsally. There is edema within the musculature on the a dorsal aspect of the foot a nd plantar aspect. Tendons demonstrate no definite abnormality. CONCLUSION: 1. No definite area of osteomyelitis is identified. There is a focal area of mild increased T2 signa l and enhancement within the distal first metatarsal. However, there is no T1 signal in this area to definitively indicate osteomyelitis. 2. There is diffuse edema of the right foot. 3. Focal area of susceptibility artifact is identified between the third and fourth digits. This is from uncertain etiology. No metallic foreign body is seen on the plain film examination from clara emery Electronically signed by: Te Boyce MD 04/28/2018 7:42 PM EDT
[2018-04-29] MEDS: ACETAMINOPHEN/HYDROcodone 325 MG/5 MG TAB PO PRN (00:17)
[2018-04-29 04:43] VITALS: BP 100/57; PULSE 46; RESP 16; TEMP 98; O2SAT 97
[2018-04-29] MEDS: CEFEPIME INJ 2,000 MG in SODIUM CHLORIDE 0.9% INJ 100 ML IV SCH ×2 (05:23→15:01)
[2018-04-29] MEDS: SODIUM CHLOR 0.9% 1000 ML INJ 1,000 ML IV SCH ×3 (05:24→16:32)
[2018-04-29] MEDS: HEPARIN SODIUM - SQ 10,000 UNITS/ML VIAL SQ SCH ×3 (05:24→21:45)
[2018-04-29 08:42] VITALS: BP 108/60; PULSE 73; RESP 20; TEMP 98.6; O2SAT 96
[2018-04-29] MEDS: DOCUSATE SODIUM 50 MG/SENNA 8.6 MG TAB PO SCH ×2 (09:00→21:45)
[2018-04-29 09:09] LABS: AUTOMATED NEUTROPHIL # 2.2 TH/MM3 (1.8-7.7); BASOPHIL % 0.7 % (0.0-2.0); EOSINOPHIL # 0.2 TH/MM3 (0-0.4); EOSINOPHIL % 4.5 % (0.0-4.0); HEMATOCRIT 38.1 % (39.0-51.0); HEMOGLOBIN 12.4 GM/DL (13.0-17.0); LYMPH % 22.2 % (9.0-44.0); LYMPHOCYTE # 0.8 TH/MM3 (1.0-4.8); MEAN CELL VOLUME 92.7 FL (80.0-100.0); MEAN CORPUSCULAR HEMOGLOBIN 30.2 PG (27.0-34.0); MEAN CORPUSCULAR HGB CONC 32.6 % (32.0-36.0); MEAN PLATELET VOLUME 7.6 FL (7.0-11.0); MONO % 7.2 % (0.0-8.0); MONOCYTE # 0.2 TH/MM3 (0-0.9); NEUT % 65.4 % (16.0-70.0); PLATELET COUNT 140 TH/MM3 (150-450); RED BLOOD COUNT 4.11 MIL/MM3 (4.50-5.90); RED CELL DISTRIBUTION WIDTH 12.8 % (11.6-17.2); WHITE BLOOD COUNT 3.4 TH/MM3 (4.0-11.0)
[2018-04-29 09:16] LABS: BICARBONATE 30.1 MEQ/L (21.0-32.0); CALCIUM 8.6 MG/DL (8.5-10.1); CREATININE 1.39 MG/DL (0.60-1.30)
[2018-04-29] MEDS: ACETAMINOPHEN/HYDROcodone 325 MG/10 MG TAB PO PRN ×3 (10:23→21:46)
[2018-04-29 12:23] VITALS: BP 98/54; PULSE 50; RESP 20; TEMP 98.2; O2SAT 96
--- NOTE | 2018-04-29 14:06 | HHI.PR ---
Subjective Remarks Follow up cellulitis, foot wound. Still with pain in the right foot. Swelling slightly better. No other complaints at this time. Objective Vitals Vital Signs Date Time Temp Pulse Resp B/P (MAP) Pulse Ox O2 Delivery O2 Flow Rate FiO2 04/29/18 12:23 98.2 50 20 98/54 (69) 96 04/29/18 08:42 98.6 73 20 108/60 (76) 96 04/29/18 04:43 98.0 46 16 100/57 (71) 97 04/28/18 23:20 97.7 44 18 103/56 (72) 97 04/28/18 20:42 97.9 49 18 104/62 (76) 100 04/28/18 15:47 98.8 52 20 108/64 (79) 99 04/28/18 15:38 2 I/O 04/28/18 04/28/18 04/28/18 04/29/18 04/29/18 04/29/18 06:59 14:59 22:59 06:59 14:59 22:59 Intake Total 480 ml Output Total 2000 ml Balance -1520 ml Intake Oral 480 ml Output Urine Total 2000 ml # Bowel Movements 0 Result Diagram: 04/29/18 0838 04/29/18 0832 Imaging Last Impressions Foot MRI 04/28/18 0000 Signed Impressions: CONCLUSION: 1. No definite area of osteomyelitis is identified. There is a focal area of m ild increased T2 signal and enhancement within the distal first metatarsal. How ever, there is no T1 signal in this area to definitively indicate osteomyelitis . 2. There is diffuse edema of the right foot. 3. Focal area of susceptibility artifact is identified between the third and f ourth digits. This is from uncertain etiology. No metallic foreign body is seen on the plain film examination from yesterday. Foot X-Ray 04/27/18 0000 Signed Impressions: CONCLUSION: Negative examination Objective Remarks General: No acute distress. Heart: Regular rate and rhythm. No murmur. Lungs: Clear to auscultation bilaterally. No wheezes, rales, or rhonchi. Breathing is nonlabored. Abdomen: Soft, nontender, nondistended. Extremities: No left lower extremity edema. Right lower extremity edema and erythema improving. Wound on the dorsum of the right foot is bandaged. Psych: Alert and oriented. Neuro: Normal speech. No focal deficits noted. Procedures None Urinary Catheter: No Vascular Central Line Catheter: No A/P Assessment and Plan 1. Right foot cellulitis/abscess, wound: Improving. He has history of MRSA infection previously. Wound culture is pending. Continue vancomycin and cefepime. Appreciate infectious disease and podiatry recommendations. 2. Hypotension: Continue IV fluids. 3. Renal insufficiency: Stable. Uncertain if acute or chronic. Monitor BUN and creatinine. Continue IV fluids. 4. Multiple skin lesions: Patient has areas of scab with surrounding erythema on the nose and behind the left ear. There is also a scabbed wound on the external left ear. Continue antibiotics. 5. DVT prophylaxis: Heparin. Discharge Planning Pending further clinical improvement. Soham Burnette MD Apr 29, 2018 14:06
[2018-04-29] MEDS ORDERED: PHARMACY ORDERED LAB ONE (14:45)
[2018-04-29] MEDS: VANCOMYCIN INJ 1,250 MG in SODIUM CHLOR 0.9% 250 ML INJ 250 ML IV SCH (16:33)
[2018-04-29 16:34] VITALS: BP 110/62; PULSE 80; RESP 20; TEMP 98.2; O2SAT 96
[2018-04-29 19:34] VITALS: BP 114/56; PULSE 45; RESP 16; TEMP 98.4; O2SAT 99
--- NOTE | 2018-04-29 20:56 | HHI.IDPN ---
Subjective Subjective Remarks BP stable co R foot pain Co itching scalp lesions Antibiotics cefpeime vancomycin Allergies: Coded Allergies: cephalexin (Verified Adverse Reaction, Intermediate, RASH, 04/27/18) *MDRO Multi-Drug Resistant Organism (Verified Adverse Reaction, Unknown, ) MRSA back wound 08/2015 Objective . Vital Signs Date Time Temp Pulse Resp B/P (MAP) Pulse Ox O2 Delivery O2 Flow Rate FiO2 04/29/18 19:34 98.4 45 16 114/56 (75) 99 04/29/18 16:34 98.2 80 20 110/62 (78) 96 04/29/18 12:23 98.2 50 20 98/54 (69) 96 04/29/18 08:42 98.6 73 20 108/60 (76) 96 04/29/18 04:43 98.0 46 16 100/57 (71) 97 04/28/18 23:20 97.7 44 18 103/56 (72) 97 04/29/18 04/29/18 04/30/18 15:00 23:00 07:00 # Voids 1 2 . Laboratory Tests Test 04/28/18 11:17 04/29/18 08:38 White Blood Count 3.9 TH/MM3 3.4 TH/MM3 Red Blood Count 4.17 MIL/MM3 4.11 MIL/MM3 Hemoglobin 12.6 GM/DL 12.4 GM/DL Hematocrit 38.0 % 38.1 % Mean Corpuscular Volume 91.1 FL 92.7 FL Mean Corpuscular Hemoglobin 30.2 PG 30.2 PG Mean Corpuscular Hemoglobin Concent 33.2 % 32.6 % Red Cell Distribution Width 12.9 % 12.8 % Platelet Count 147 TH/MM3 140 TH/MM3 Mean Platelet Volume 7.8 FL 7.6 FL Neutrophils (%) (Auto) 64.1 % 65.4 % Lymphocytes (%) (Auto) 23.5 % 22.2 % Monocytes (%) (Auto) 8.1 % 7.2 % Eosinophils (%) (Auto) 3.6 % 4.5 % Basophils (%) (Auto) 0.7 % 0.7 % Neutrophils # (Auto) 2.5 TH/MM3 2.2 TH/MM3 Lymphocytes # (Auto) 0.9 TH/MM3 0.8 TH/MM3 Monocytes # (Auto) 0.3 TH/MM3 0.2 TH/MM3 Eosinophils # (Auto) 0.1 TH/MM3 0.2 TH/MM3 Basophils # (Auto) 0.0 TH/MM3 0.0 TH/MM3 CBC Comment DIFF FINAL DIFF FINAL Differential Comment Laboratory Tests Test 04/28/18 11:17 04/28/18 14:26 04/29/18 08:32 Blood Urea Nitrogen 16 MG/DL 14 MG/DL Creatinine 1.42 MG/DL 1.39 MG/DL Random Glucose 80 MG/DL 94 MG/DL Calcium Level 8.7 MG/DL 8.6 MG/DL Sodium Level 141 MEQ/L 145 MEQ/L Potassium Level 4.0 MEQ/L 4.7 MEQ/L Chloride Level 105 MEQ/L 109 MEQ/L Carbon Dioxide Level 30.0 MEQ/L 30.1 MEQ/L Anion Gap 6 MEQ/L 6 MEQ/L Estimat Glomerular Filtration Rate 51 ML/MIN 52 ML/MIN Lactic Acid Level 1.2 mmol/L Microbiology Date/Time Source Procedure Growth Status 04/28/18 15:35 Blood Peripheral Aerobic Blood Culture - Preliminary NO GROWTH IN 1 DAY Resulted 04/28/18 15:35 Blood Peripheral Anaerobic Blood Culture - Preliminary NO GROWTH IN 1 DAY Resulted 04/28/18 15:25 Blood Peripheral Aerobic Blood Culture - Preliminary NO GROWTH IN 1 DAY Resulted 04/28/18 15:25 Blood Peripheral Anaerobic Blood Culture - Preliminary NO GROWTH IN 1 DAY Resulted 04/27/18 09:10 Blood Peripheral Aerobic Blood Culture - Preliminary NO GROWTH IN 2 DAYS Resulted 04/27/18 09:10 Blood Peripheral Anaerobic Blood Culture - Preliminary NO GROWTH IN 2 DAYS Resulted 04/27/18 09:00 Blood Peripheral Aerobic Blood Culture - Preliminary NO GROWTH IN 2 DAYS Resulted 04/27/18 09:00 Blood Peripheral Anaerobic Blood Culture - Preliminary NO GROWTH IN 2 DAYS Resulted 04/28/18 19:30 Wound Foot Gram Stain - Final Resulted 04/28/18 19:30 Wound Culture - Preliminary Staphylococcus Aureus Group A Beta Strep Resulted Imaging Last Impressions Foot MRI 04/28/18 0000 Signed Impressions: CONCLUSION: 1. No definite area of osteomyelitis is identified. There is a focal area of m ild increased T2 signal and enhancement within the distal first metatarsal. How ever, there is no T1 signal in this area to definitively indicate osteomyelitis . 2. There is diffuse edema of the right foot. 3. Focal area of susceptibility artifact is identified between the third and f ourth digits. This is from uncertain etiology. No metallic foreign body is seen on the plain film examination from yesterday. Foot X-Ray 04/27/18 0000 Signed Impressions: CONCLUSION: Negative examination Physical Exam CONSTITUTIONAL/GENERAL: This is an adequately nourished patient, in no apparent distress. TUBES/LINES/DRAINS: SKIN: No jaundice, rashes, or lesions. Ecchymoses on upper extremities. No wounds seen anteriorly. Skin temperature appropriate. Not diaphoretic. HEAD: Atraumatic. Normocephalic. Multiple hard crusted skin lesions on the scalp. ENT: Hearing grossly normal. Nose without bleeding or purulent drainage. Dentition poor Partially excised toungue. Oral ulcer Firm small regional lymph nodules NECK: Trachea midline. Supple, nontender. No palpable thyroid enlargement or nodularity. CARDIOVASCULAR: Regular rate and rhythm without murmurs, gallops, or rubs. No JVD. Peripheral pulses symmetric. RESPIRATORY/CHEST: Symmetric, unlabored respirations. Clear to auscultation. Breath sounds equal bilaterally. No wheezes, rales, or rhonchi. GASTROINTESTINAL: Abdomen soft, non-tender, nondistended. No hepato-splenomegaly , or palpable masses. No guarding. Bowel sounds present. GENITOURINARY: Without palpable bladder distension . MUSCULOSKELETAL: Extremities without clubbing, cyanosis No joint tenderness or effusion noted. No calf tenderness. No mottling or clubbing. STATUS LOCALIS: R foot with open 2- 3 cm ulcer drainin g pus, surrounded with erythema + more edema extending to the ankle + Ipsilateral lymph nodule R groin LYMPHATICS: No palpable cervical or supraclavicular adenopathy. NEUROLOGICAL: Awake and alert. Motor and sensory grossly within normal limits. Follows commands. Clear speech. Moves all extremities. PSYCHIATRIC: No obvious anxiety/depression. no apparent hallucinations or other psychotic thought process. Assessment & Plan Remarks R foot infected wound, cellulitis - MSSA, GAS Hypotension Sepsis ARF Itching skin lesion s - cont vancomycin - dc cefepime - consider bx of scalp lesions if wont go away He would likley need debridement of t ewound fu CBC Merari Matt MD Apr 29, 2018 20:56
[2018-04-29] MEDS ORDERED: LIDOCAINE 1%/EPINEPHrine 1:100,000 SOLN 50 ML VIAL ONE (22:03)
[2018-04-29] MEDS ORDERED: LIDOCAINE HCL 1% 50 ML VIAL ONE (22:07)
--- NOTE | 2018-04-29 22:34 | HHI.PR ---
Subjective Remarks Patient seen bedside. Resting comfortably. Reports pain to right foot states it is controlled by pain medications. Objective Vital Signs Date Time Temp Pulse Resp B/P (MAP) Pulse Ox O2 Delivery O2 Flow Rate FiO2 04/29/18 19:34 98.4 45 16 114/56 (75) 99 04/29/18 16:34 98.2 80 20 110/62 (78) 96 04/29/18 12:23 98.2 50 20 98/54 (69) 96 04/29/18 08:42 98.6 73 20 108/60 (76) 96 04/29/18 04:43 98.0 46 16 100/57 (71) 97 04/28/18 23:20 97.7 44 18 103/56 (72) 97 I/O 04/28/18 04/28/18 04/28/18 04/29/18 04/29/18 04/29/18 06:59 14:59 22:59 06:59 14:59 22:59 Intake Total 480 ml Output Total 2000 ml Balance -1520 ml Intake Oral 480 ml Output Urine Total 2000 ml # Voids 1 2 # Bowel Movements 0 Result Diagram: 04/29/18 0838 04/29/18 0832 Imaging Last Impressions Foot MRI 04/28/18 0000 Signed Impressions: CONCLUSION: 1. No definite area of osteomyelitis is identified. There is a focal area of m ild increased T2 signal and enhancement within the distal first metatarsal. How ever, there is no T1 signal in this area to definitively indicate osteomyelitis . 2. There is diffuse edema of the right foot. 3. Focal area of susceptibility artifact is identified between the third and f ourth digits. This is from uncertain etiology. No metallic foreign body is seen on the plain film examination from yesterday. Foot X-Ray 04/27/18 0000 Signed Impressions: CONCLUSION: Negative examination Other Results Microbiology Date/Time Source Procedure Growth Status 04/28/18 15:35 Blood Peripheral Aerobic Blood Culture - Preliminary NO GROWTH IN 1 DAY Resulted 04/28/18 15:35 Blood Peripheral Anaerobic Blood Culture - Preliminary NO GROWTH IN 1 DAY Resulted 04/28/18 19:30 Wound Foot Gram Stain - Final Resulted 04/28/18 19:30 Wound Culture - Preliminary Staphylococcus Aureus Group A Beta Strep Resulted Objective Remarks Lower extremity physical exam: Vascular: Dorsalis pedis 2 out of 4, posterior tibial 2 out of 4. Capillary refill time within normal limits to digits 5 bilateral foot. Edema present right foot Neuro: Gross sensation intact to bilateral lower extremity. Pinpoint sensation intact. No hyperalgesia noted to bilateral lower extremity Dermatology: Normal temperature and turgor to bilateral lower extremity. Dorsal right foot ulceration noted with associated erythema and edema. No purulent drainage upon compression. Serous drainage noted. No probe to bone. No exposed muscle tendon. +3 pitting edema noted. No fluctuance or crepitus noted. Musculoskeletal: Tender to palpation to dorsal right foot. Medications and IVs Current Medications Medications (Trade) Dose Ordered Sig/Travis Route Start Time Stop Time Status Last Admin (Heparin Inj) 5,000 units Q8H SQ 04/27/18 13:00 04/29/18 21:45 ([place] 5-325 Mg) 1 tab Q4H PRN PO 04/27/18 12:15 04/29/18 00:17 ([place] 10-325 Mg) 1 tab Q4H PRN PO 04/27/18 12:15 04/29/18 21:46 (Morphine Inj) 4 mg Q3H PRN IV PUSH 04/27/18 12:15 (Narcan Inj) 0.4 mg UNSCH PRN IV PUSH 04/27/18 12:15 (Sabra-Colace) 1 tab BID PO 04/27/18 21:00 04/29/18 21:45 (Milk Of Magnesia Liq) 30 ml Q12H PRN PO 04/27/18 12:15 (Senokot) 17.2 mg Q12H PRN PO 04/27/18 12:15 Pharmacy Profile Note 0 ml @ 0 mls/hr UNSCH OTHER 04/27/18 12:15 Vancomycin HCl 1250 mg/Sodium Chloride 262.5 ml @ 250 mls/hr Q18H IV 04/28/18 03:00 04/29/18 16:33 Sodium Chloride 1,000 ml @ 100 mls/hr Q10H IV 04/28/18 01:30 04/29/18 16:32 ([facility] Ordered Lab Info) SPECIFIC LAB TO BE DRAWN:VANCO TROUGH DATE TO BE DRRamon. ONCE ONCE .XX 05/01/18 20:45 05/01/18 20:46 Assessment and Plan Assessment and Plan 57-year-old male with right foot ulceration associated edema and erythema, possible abscess Patient examined and evaluated with all questions answered Continue IV antibiotics Mild improvement noted Right foot incision and drainage performed to evacuate any hematoma present. Dorsal foot ulcer debrided of any necrotic nonviable tissue. Consent signed and obtained Timeout performed with nurse present bedside We will reevaluate patient tomorrow for possible DC per per podiatry in the next 1-2 days. Description of procedure: Consent obtained. Timeout performed. Patient identifiers 2. Patient in agreement with bedside procedure. 1% lidocaine plain infiltrated about right foot. 11 blade utilized to debride all nonviable necrotic tissue from right foot dorsal wound. Full-thickness excisional debridement performed to subcutaneous tissue. Incision made over dorsal foot wound hematoma evacuated. Taina Sylvester DPM Apr 29, 2018 22:34
[2018-04-30] VITALS: BP 122/74; PULSE 54; RESP 16; TEMP 97.4; O2SAT 98
[2018-04-30] MEDS: ACETAMINOPHEN/HYDROcodone 325 MG/10 MG TAB PO PRN ×5 (01:50→20:46)
[2018-04-30] MEDS: SODIUM CHLOR 0.9% 1000 ML INJ 1,000 ML IV SCH ×2 (03:30→14:04)
[2018-04-30] MEDS: HEPARIN SODIUM - SQ 10,000 UNITS/ML VIAL SQ SCH ×3 (06:00→20:47)
[2018-04-30 08:00] VITALS: BP 96/51; PULSE 45; RESP 17; TEMP 97.6; O2SAT 99
[2018-04-30] MEDS: DOCUSATE SODIUM 50 MG/SENNA 8.6 MG TAB PO SCH ×2 (09:57→20:46)
[2018-04-30] MEDS: VANCOMYCIN INJ 1,250 MG in SODIUM CHLOR 0.9% 250 ML INJ 250 ML IV SCH (10:02)
[2018-04-30 12:00] VITALS: BP 106/58; PULSE 46; RESP 17; TEMP 97.8; O2SAT 92
--- NOTE | 2018-04-30 13:10 | HHI.PR ---
Subjective Remarks 57 years old male presented to the ED with a right dorsal foot infection which started 5 days ago after he scraped his foot with his own bed, patient was referred from his PCP office to get IV antibiotic for what suspecting MRSA infection, patient denied significant fever or chills he reported severe pain in his foot close to 9 out of 10, he reported multiple area of skin abscess and skin infection over his called arms chest and legs in different age of healing some of it with crusted drainage also suspecting of's strep infection. 6-7 Follow-up foot wound, cellulitis. The patient reports pain in his right foot. He states that he was not able to get his pain medication overnight because of low blood pressure. He denies fever, chills, night sweats. He has multiple wounds including on his nose and behind his left ear. 6-8 Follow up cellulitis, foot wound. Still with pain in the right foot. Swelling slightly better. No other complaints at this time. 6-9 FOLLOW UP CELLULITIS COMPLAINS OF AREA IN LEFT GROIN THAT IS GETTING SOFTER WITH ANTIBIOTICS WILL MONITOR DW RN AND PATIENT Objective Vitals Vital Signs Date Time Temp Pulse Resp B/P (MAP) Pulse Ox O2 Delivery O2 Flow Rate FiO2 04/30/18 12:00 97.8 46 17 106/58 (74) 92 04/30/18 08:00 97.6 45 17 96/51 (66) 99 04/30/18 02:50 18 04/30/18 00:00 97.4 54 16 122/74 (90) 98 04/29/18 19:34 98.4 45 16 114/56 (75) 99 04/29/18 16:34 98.2 80 20 110/62 (78) 96 I/O 04/29/18 04/29/18 04/29/18 04/30/18 04/30/18 04/30/18 07:00 15:00 23:00 07:00 15:00 23:00 Intake Total 1000 ml Balance 1000 ml IV Total 1000 ml # Voids 1 2 1 # Bowel Movements 1 Result Diagram: 04/29/18 0838 04/29/18 0832 Other Results Laboratory Tests Test 04/28/18 11:17 04/28/18 14:26 04/29/18 08:32 04/29/18 08:38 White Blood Count 3.9 TH/MM3 3.4 TH/MM3 Red Blood Count 4.17 MIL/MM3 4.11 MIL/MM3 Hemoglobin 12.6 GM/DL 12.4 GM/DL Hematocrit 38.0 % 38.1 % Mean Corpuscular Volume 91.1 FL 92.7 FL Mean Corpuscular Hemoglobin 30.2 PG 30.2 PG Mean Corpuscular Hemoglobin Concent 33.2 % 32.6 % Red Cell Distribution Width 12.9 % 12.8 % Platelet Count 147 TH/MM3 140 TH/MM3 Mean Platelet Volume 7.8 FL 7.6 FL Neutrophils (%) (Auto) 64.1 % 65.4 % Lymphocytes (%) (Auto) 23.5 % 22.2 % Monocytes (%) (Auto) 8.1 % 7.2 % Eosinophils (%) (Auto) 3.6 % 4.5 % Basophils (%) (Auto) 0.7 % 0.7 % Neutrophils # (Auto) 2.5 TH/MM3 2.2 TH/MM3 Lymphocytes # (Auto) 0.9 TH/MM3 0.8 TH/MM3 Monocytes # (Auto) 0.3 TH/MM3 0.2 TH/MM3 Eosinophils # (Auto) 0.1 TH/MM3 0.2 TH/MM3 Basophils # (Auto) 0.0 TH/MM3 0.0 TH/MM3 CBC Comment DIFF FINAL DIFF FINAL Differential Comment Blood Urea Nitrogen 16 MG/DL 14 MG/DL Creatinine 1.42 MG/DL 1.39 MG/DL Random Glucose 80 MG/DL 94 MG/DL Calcium Level 8.7 MG/DL 8.6 MG/DL Sodium Level 141 MEQ/L 145 MEQ/L Potassium Level 4.0 MEQ/L 4.7 MEQ/L Chloride Level 105 MEQ/L 109 MEQ/L Carbon Dioxide Level 30.0 MEQ/L 30.1 MEQ/L Anion Gap 6 MEQ/L 6 MEQ/L Estimat Glomerular Filtration Rate 51 ML/MIN 52 ML/MIN Lactic Acid Level 1.2 mmol/L Test 04/29/18 15:00 Vancomycin Level Trough 8.4 MCG/ML Imaging Last Impressions Foot MRI 04/28/18 0000 Signed Impressions: CONCLUSION: 1. No definite area of osteomyelitis is identified. There is a focal area of m ild increased T2 signal and enhancement within the distal first metatarsal. How ever, there is no T1 signal in this area to definitively indicate osteomyelitis . 2. There is diffuse edema of the right foot. 3. Focal area of susceptibility artifact is identified between the third and f ourth digits. This is from uncertain etiology. No metallic foreign body is seen on the plain film examination from yesterday. Foot X-Ray 04/27/18 0000 Signed Impressions: CONCLUSION: Negative examination Objective Remarks GENERAL: Awake alert and oriented 3 talkative and cooperative. SKIN: Warm and dry. Right foot is dressed-right groin with area of induration improved HEAD: Atraumatic. Normocephalic. EYES: Pupils equal and round. No scleral icterus. No injection or drainage. ENT: No nasal bleeding or discharge. Mucous membranes pink and moist. NECK: Trachea midline. No JVD. CARDIOVASCULAR: Regular rate and rhythm. S1-S2 no S3 or S4 RESPIRATORY: No accessory muscle use. Clear to auscultation. Breath sounds equal bilaterally. GASTROINTESTINAL: Abdomen soft, non-tender, nondistended. Hepatic and splenic margins not palpable. MUSCULOSKELETAL: Extremities without clubbing, cyanosis, or edema. No obvious deformities. NEUROLOGICAL: Awake and alert. No obvious cranial nerve deficits. Motor grossly within normal limits. Five out of 5 muscle strength in the arms and legs. Normal speech. PSYCHIATRIC: Appropriate mood and affect; insight and judgment normal. Procedures Incision and drainage of right foot wound by podiatry on April 29 Medications and IVs Current Medications Vancomycin HCl 1000 mg/Sodium Chloride 250 ml @ 250 mls/hr ONCE ONCE IV Last administered on 04/27/18at 09:35; Start 04/27/18 at 09:30; Stop 04/27/18 at 10:29; Status DC Morphine Sulfate (Morphine Inj) 4 mg ONCE ONCE IV PUSH Last administered on 04/27/18at 10:43; Start 04/27/18 at 10:30; Stop 04/27/18 at 10:31; Status DC Ondansetron HCl (Zofran Odt) 4 mg ONCE ONCE PO Last administered on 04/27/18at 10:43; Start 04/27/18 at 10:30; Stop 04/27/18 at 10:31; Status DC Heparin Sodium (Porcine) (Heparin Inj) 5,000 units Q8H SQ Last administered on 04/30/18at 09:57; Start 04/27/18 at 13:00 Acetaminophen/ Hydrocodone Bitart ([place] 5-325 Mg) 1 tab Q4H PRN PO PAIN SCALE 3 TO 5 Last administered on 04/29/18at 00:17; Start 04/27/18 at 12:15 Acetaminophen/ Hydrocodone Bitart ([place] 10-325 Mg) 1 tab Q4H PRN PO PAIN SCALE 6 TO 10 Last administered on 04/30/18at 06:01; Start 04/27/18 at 12:15 Morphine Sulfate (Morphine Inj) 4 mg Q3H PRN IV PUSH BREAKTHROUGH PAIN; Start 04/27/18 at 12:15 Naloxone HCl (Narcan Inj) 0.4 mg UNSCH PRN IV PUSH SEE LABEL COMMENTS; Start at 12:15 Senna/Docusate Sodium (Sabra-Colace) 1 tab BID PO Last administered on 04/30/18at 09:57; Start 04/27/18 at 21:00 Magnesium Hydroxide (Milk Of Magnesia Liq) 30 ml Q12H PRN PO Mild constipation ; Start 04/27/18 at 12:15 Sennosides (Senokot) 17.2 mg Q12H PRN PO Moderate constipation; Start 04/27/18 at 12:15 Pharmacy Profile Note 0 ml @ 0 mls/hr UNSCH OTHER ; Start 04/27/18 at 12:15 Vancomycin HCl 1250 mg/Sodium Chloride 262.5 ml @ 250 mls/hr Q18H IV Last administered on 04/30/18at 10:02; Start 04/28/18 at 03:00; Stop 04/30/18 at 10:37; Status DC Miscellaneous Information ([facility] [place] [facility] Ordered Lab Info) SPECIFIC LAB TO BE DRAWN:VANCO TROUGH DATE TO BE DRRadha.. ONCE ONCE .XX ; Start 04/29/18 at 14:45; Stop 04/29/18 at 14:46; Status DC Ketorolac Tromethamine (Toradol Inj) 30 mg ONCE ONCE IV PUSH Last administered on 04/28/18at 01:52; Start 04/28/18 at 01:30; Stop 04/28/18 at 01:31; Status DC Sodium Chloride 1,000 ml @ 100 mls/hr Q10H IV Last administered on 04/30/18at 03 :30; Start 04/28/18 at 01:30 Sodium Chloride 500 ml @ 500 mls/hr BOLUS ONCE IV Last administered on at 14:44; Start 04/28/18 at 13:00; Stop 04/28/18 at 13:59; Status DC Cefepime HCl 2000 mg/Sodium Chloride 100 ml @ 200 mls/hr Q8H IV Last administered on 04/29/18at 15:01; Start 04/28/18 at 13:00; Stop 04/29/18 at 20:57; Status DC Gadodiamide (Omniscan Pf Inj) 15 ml STK-MED ONCE IVCONTRAST Last administered on 04/28/18at 19:28; Start 04/28/18 at 19:28; Stop 04/28/18 at 19:29; Status DC Miscellaneous Information ([facility] Ordered Lab Info) SPECIFIC LAB TO BE DRAWN:VANCO TROUGH DATE TO BE DR... ONCE ONCE .XX ; Start 05/03/18 at 08:45; Stop 05/03/18 at 08:46 Lidocaine/ Epinephrine (Xylocaine-Epi 1%-1:100,000 Inj) 50 ml STK-MED ONCE .ROUTE ; Start 04/29/18 at 22:03; Stop 04/29/18 at 22:04; Status DC Lidocaine HCl (Xylocaine 1% Inj (50 ml)) 50 ml STK-MED ONCE .ROUTE ; Start at 22:07; Stop 04/29/18 at 22:08; Status DC Vancomycin HCl 1750 mg/Sodium Chloride 517.5 ml @ 250 mls/hr Q18H IV ; Start at 03:00 A/P Assessment and Plan 1. Right foot cellulitis/abscess, wound: Improving. He has history of MRSA infection previously. Wound culture is pending. Continue vancomycin and cefepime. Appreciate infectious disease and podiatry recommendations. Has had incision and drainage of the right foot wound by podiatry 2. Hypotension: Continue IV fluids. 3. Renal insufficiency: Stable. Uncertain if acute or chronic. Monitor BUN and creatinine. Continue IV fluids. 4. Multiple skin lesions: Patient has areas of scab with surrounding erythema on the nose and behind the left ear. There is also a scabbed wound on the external left ear. Continue antibiotics. 5. DVT prophylaxis: Heparin. Left groin lesion has improved with antibiotics Discharge Planning Pending improvement of the wounds Deepak Alvarado 9, 2018 13:10
[2018-04-30 15:21] LABS: AUTOMATED NEUTROPHIL # 1.9 TH/MM3 (1.8-7.7); BASOPHIL % 0.7 % (0.0-2.0); EOSINOPHIL # 0.1 TH/MM3 (0-0.4); EOSINOPHIL % 4.3 % (0.0-4.0); HEMOGLOBIN 12.2 GM/DL (13.0-17.0); LYMPH % 27.7 % (9.0-44.0); LYMPHOCYTE # 0.9 TH/MM3 (1.0-4.8); MEAN CELL VOLUME 91.6 FL (80.0-100.0); MEAN CORPUSCULAR HEMOGLOBIN 30.3 PG (27.0-34.0); MEAN PLATELET VOLUME 7.9 FL (7.0-11.0); MONO % 7.8 % (0.0-8.0); MONOCYTE # 0.3 TH/MM3 (0-0.9); NEUT % 59.5 % (16.0-70.0); PLATELET COUNT 160 TH/MM3 (150-450); RED BLOOD COUNT 4.04 MIL/MM3 (4.50-5.90); RED CELL DISTRIBUTION WIDTH 12.4 % (11.6-17.2); WHITE BLOOD COUNT 3.2 TH/MM3 (4.0-11.0)
[2018-04-30 15:41] LABS: BICARBONATE 29.4 MEQ/L (21.0-32.0); CALCIUM 8.3 MG/DL (8.5-10.1); CREATININE 1.27 MG/DL (0.60-1.30)
[2018-04-30 16:00] VITALS: BP 103/59; PULSE 47; RESP 17; TEMP 97.1; O2SAT 98
[2018-04-30 20:00] VITALS: BP 106/56; PULSE 46; RESP 18; TEMP 97.8; O2SAT 98
[2018-05-01] VITALS: BP 104/60; PULSE 41; RESP 18; TEMP 98.1; O2SAT 98
[2018-05-01] MEDS: ACETAMINOPHEN/HYDROcodone 325 MG/10 MG TAB PO PRN ×6 (00:58→22:31)
[2018-05-01] MEDS: SODIUM CHLOR 0.9% 1000 ML INJ 1,000 ML IV SCH ×3 (01:03→11:31)
[2018-05-01] MEDS: VANCOMYCIN INJ 1,750 MG in SODIUM CHLORID 0.9% 500 ML INJ 500 ML IV SCH ×2 (03:56→19:45)
[2018-05-01] MEDS: HEPARIN SODIUM - SQ 10,000 UNITS/ML VIAL SQ SCH ×3 (03:56→19:48)
[2018-05-01 04:00] VITALS: BP 104/60; PULSE 41; RESP 18; TEMP 98.1; O2SAT 98
[2018-05-01 06:11] LABS: BASOPHIL % 0.4 % (0.0-2.0); EOSINOPHIL # 0.1 TH/MM3 (0-0.4); EOSINOPHIL % 3.2 % (0.0-4.0); HEMATOCRIT 36.1 % (39.0-51.0); HEMOGLOBIN 11.9 GM/DL (13.0-17.0); LYMPH % 34.5 % (9.0-44.0); LYMPHOCYTE # 1.3 TH/MM3 (1.0-4.8); MEAN CELL VOLUME 91.7 FL (80.0-100.0); MEAN CORPUSCULAR HEMOGLOBIN 30.3 PG (27.0-34.0); MEAN CORPUSCULAR HGB CONC 33.1 % (32.0-36.0); MEAN PLATELET VOLUME 7.8 FL (7.0-11.0); MONO % 8.7 % (0.0-8.0); MONOCYTE # 0.3 TH/MM3 (0-0.9); NEUT % 53.2 % (16.0-70.0); PLATELET COUNT 153 TH/MM3 (150-450); RED BLOOD COUNT 3.94 MIL/MM3 (4.50-5.90); RED CELL DISTRIBUTION WIDTH 12.6 % (11.6-17.2); WHITE BLOOD COUNT 3.7 TH/MM3 (4.0-11.0)
[2018-05-01 06:35] LABS: ALBUMIN 2.8 GM/DL (3.4-5.0); AST (GOT) 34 U/L (15-37); BICARBONATE 30.5 MEQ/L (21.0-32.0); BLOOD UREA NITROGEN 11 MG/DL (7-18); CALCIUM 8.2 MG/DL (8.5-10.1); CHLORIDE 107 MEQ/L (98-107); CREATININE 1.35 MG/DL (0.60-1.30); GLOMERULAR FILTRATION RATE 54 ML/MIN (>89); GLUCOSE,RANDOM 82 MG/DL (74-106); MAGNESIUM 1.9 MG/DL (1.5-2.5); SODIUM (NA) 144 MEQ/L (136-145)
[2018-05-01 06:36] LABS: ALT (GPT) 51 U/L (12-78); PHOSPHORUS 2.9 MG/DL (2.5-4.9)
[2018-05-01 06:45] LABS: ALKALINE PHOSPHATASE 47 U/L (45-117); FREE T4 1.16 NG/DL (0.76-1.46); TOTAL BILIRUBIN ADULT 0.3 MG/DL (0.2-1.0); TOTAL PROTEIN 5.7 GM/DL (6.4-8.2)
[2018-05-01] MEDS: DOCUSATE SODIUM 50 MG/SENNA 8.6 MG TAB PO SCH ×2 (07:37→19:46)
[2018-05-01] MEDS: MORPHINE SULFATE 4 MG/ML INJ IV PUSH PRN ×3 (07:45→19:51)
[2018-05-01 09:30] VITALS: BP 121/70; PULSE 45; RESP 16; TEMP 97.2; O2SAT 100
[2018-05-01 10:34] LABS: HEMOGLOBIN A1C 5.7 % (4.3-6.0)
[2018-05-01 13:14] VITALS: BP 121/65; PULSE 43; RESP 16; TEMP 97.6; O2SAT 100
--- NOTE | 2018-05-01 15:15 | HHI.PR ---
Subjective Remarks Patient seen bedside. Resting comfortably. Reports pain to right foot states it is controlled by pain medications. Reports improvement in edema and pain. Objective Vital Signs Date Time Temp Pulse Resp B/P (MAP) Pulse Ox O2 Delivery O2 Flow Rate FiO2 05/01/18 13:14 97.6 43 16 121/65 (83) 100 05/01/18 09:30 97.2 45 16 121/70 (87) 100 05/01/18 04:00 98.1 41 18 104/60 (75) 98 05/01/18 02:04 20 05/01/18 00:00 98.1 41 18 104/60 (75) 98 04/30/18 20:00 97.8 46 18 106/56 (73) 98 04/30/18 16:00 97.1 47 17 103/59 (74) 98 I/O 04/30/18 04/30/18 04/30/18 05/01/18 05/01/18 05/01/18 07:00 15:00 23:00 07:00 15:00 23:00 Intake Total 1000 ml 262.5 ml 2502 ml 360 ml Balance 1000 ml 262.5 ml 2502 ml 360 ml Intake Oral 1302 ml 360 ml IV Total 1000 ml 262.5 ml 1200 ml # Voids 1 10 3 # Bowel Movements 1 1 0 Result Diagram: 05/01/18 0525 05/01/18 0525 Imaging Last Impressions Foot MRI 04/28/18 0000 Signed Impressions: CONCLUSION: 1. No definite area of osteomyelitis is identified. There is a focal area of m ild increased T2 signal and enhancement within the distal first metatarsal. How ever, there is no T1 signal in this area to definitively indicate osteomyelitis . 2. There is diffuse edema of the right foot. 3. Focal area of susceptibility artifact is identified between the third and f ourth digits. This is from uncertain etiology. No metallic foreign body is seen on the plain film examination from yesterday. Foot X-Ray 04/27/18 0000 Signed Impressions: CONCLUSION: Negative examination Procedures Status post bedside incision and drainage right foot date of procedure 04/29 Other Results Microbiology Date/Time Source Procedure Growth Status 04/28/18 15:35 Blood Peripheral Aerobic Blood Culture - Preliminary NO GROWTH IN 3 DAYS Resulted 04/28/18 15:35 Blood Peripheral Anaerobic Blood Culture - Preliminary NO GROWTH IN 3 DAYS Resulted 04/29/18 22:30 Wound Foot Gram Stain - Final Resulted 04/29/18 22:30 Wound Culture - Preliminary Group A Beta Strep Resulted Objective Remarks Lower extremity physical exam: Vascular: Dorsalis pedis 2 out of 4, posterior tibial 2 out of 4. Capillary refill time within normal limits to digits 5 bilateral foot. Edema present right foot Neuro: Gross sensation intact to bilateral lower extremity. Pinpoint sensation intact. No hyperalgesia noted to bilateral lower extremity Dermatology: Normal temperature and turgor to bilateral lower extremity. Dorsal right foot ulceration noted with improved edema, resolving erythema. Granular base present with rolled epithelialized borders border. No purulent drainage upon compression. Serous drainage noted. No probe to bone. No exposed muscle tendon. +1 pitting edema noted, improvement noted. No fluctuance or crepitus noted. Musculoskeletal: Tender to palpation to dorsal right foot. Medications and IVs Current Medications Medications (Trade) Dose Ordered Sig/Travis Route Start Time Stop Time Status Last Admin (Heparin Inj) 5,000 units Q8H SQ 04/27/18 13:00 05/01/18 11:30 ([place] 5-325 Mg) 1 tab Q4H PRN PO 04/27/18 12:15 04/29/18 00:17 ([place] 10-325 Mg) 1 tab Q4H PRN PO 04/27/18 12:15 05/01/18 13:52 (Morphine Inj) 4 mg Q3H PRN IV PUSH 04/27/18 12:15 05/01/18 11:31 (Narcan Inj) 0.4 mg UNSCH PRN IV PUSH 04/27/18 12:15 (Sabra-Colace) 1 tab BID PO 04/27/18 21:00 05/01/18 07:37 (Milk Of Magnesia Liq) 30 ml Q12H PRN PO 04/27/18 12:15 (Senokot) 17.2 mg Q12H PRN PO 04/27/18 12:15 Pharmacy Profile Note 0 ml @ 0 mls/hr UNSCH OTHER 04/27/18 12:15 Sodium Chloride 1,000 ml @ 100 mls/hr Q10H IV 04/28/18 01:30 05/01/18 11:31 ([facility] [place] [facility] Ordered Lab Info) SPECIFIC LAB TO BE DRAWN:VANCO TROUGH DATE TO BE DRRadha.. ONCE ONCE .XX 05/03/18 08:45 05/03/18 08:46 Vancomycin HCl 1750 mg/Sodium Chloride 517.5 ml @ 250 mls/hr Q18H IV 05/01/18 03:00 05/01/18 03:56 (Santyl Oint) 1 applic DAILY TOPICAL 05/02/18 09:00 UNV Assessment and Plan Assessment and Plan 57-year-old male with right foot ulceration status post bedside incision and drainage Patient examined and evaluated with all questions answered Right foot ulcer with significant improvement noted in erythema and edema to right foot Patient okay to DC per podiatry Patient will need follow-up with [facility] Case management consult placed to facilitate follow-up with [facility] Wound care orders placed for Santyl with moist to dry dressing to right foot Please reconsult podiatry if needed Taina Sylvester DPM May 01, 2018 15:14
--- NOTE | 2018-05-01 15:17 | HHI.PR ---
Subjective Remarks 57 years old male presented to the ED with a right dorsal foot infection which started 5 days ago after he scraped his foot with his own bed, patient was referred from his PCP office to get IV antibiotic for what suspecting MRSA infection, patient denied significant fever or chills he reported severe pain in his foot close to 9 out of 10, he reported multiple area of skin abscess and skin infection over his called arms chest and legs in different age of healing some of it with crusted drainage also suspecting of's strep infection. 6-7 Follow-up foot wound, cellulitis. The patient reports pain in his right foot. He states that he was not able to get his pain medication overnight because of low blood pressure. He denies fever, chills, night sweats. He has multiple wounds including on his nose and behind his left ear. 6-8 Follow up cellulitis, foot wound. Still with pain in the right foot. Swelling slightly better. No other complaints at this time. 6-9 FOLLOW UP CELLULITIS COMPLAINS OF AREA IN LEFT GROIN THAT IS GETTING SOFTER WITH ANTIBIOTICS WILL MONITOR DW RN AND PATIENT 6-10 SEEN BY PODIATRY SHE STATES HE IS IMPROVED BUT STILL HAS WOUNDS IN LEFT GROIN AND MULTIPLE ON HIS HEAD THAT ARE HEALING REMAINS ON VANCO NOT CLEARED BY ID PROBABLY HOMELESS LIVE "[place]" CANNOT GIVE AN ADDRESS CLEARED BY PODIATRY NOT CLEARED BY ID YET Objective Vitals Vital Signs Date Time Temp Pulse Resp B/P (MAP) Pulse Ox O2 Delivery O2 Flow Rate FiO2 05/01/18 13:14 97.6 43 16 121/65 (83) 100 05/01/18 09:30 97.2 45 16 121/70 (87) 100 05/01/18 04:00 98.1 41 18 104/60 (75) 98 05/01/18 02:04 20 05/01/18 00:00 98.1 41 18 104/60 (75) 98 04/30/18 20:00 97.8 46 18 106/56 (73) 98 04/30/18 16:00 97.1 47 17 103/59 (74) 98 I/O 04/30/18 04/30/18 04/30/18 05/01/18 05/01/18 05/01/18 07:00 15:00 23:00 07:00 15:00 23:00 Intake Total 1000 ml 262.5 ml 2502 ml 360 ml Balance 1000 ml 262.5 ml 2502 ml 360 ml Intake Oral 1302 ml 360 ml IV Total 1000 ml 262.5 ml 1200 ml # Voids 1 10 3 # Bowel Movements 1 1 0 Result Diagram: 05/01/18 0525 05/01/18 0525 Other Results Laboratory Tests Test 04/29/18 08:32 04/29/18 08:38 04/29/18 15:00 04/30/18 14:38 Blood Urea Nitrogen 14 MG/DL 11 MG/DL Creatinine 1.39 MG/DL 1.27 MG/DL Random Glucose 94 MG/DL 99 MG/DL Calcium Level 8.6 MG/DL 8.3 MG/DL Sodium Level 145 MEQ/L 143 MEQ/L Potassium Level 4.7 MEQ/L 4.2 MEQ/L Chloride Level 109 MEQ/L 107 MEQ/L Carbon Dioxide Level 30.1 MEQ/L 29.4 MEQ/L Anion Gap 6 MEQ/L 7 MEQ/L Estimat Glomerular Filtration Rate 52 ML/MIN 58 ML/MIN White Blood Count 3.4 TH/MM3 3.2 TH/MM3 Red Blood Count 4.11 MIL/MM3 4.04 MIL/MM3 Hemoglobin 12.4 GM/DL 12.2 GM/DL Hematocrit 38.1 % 37.0 % Mean Corpuscular Volume 92.7 FL 91.6 FL Mean Corpuscular Hemoglobin 30.2 PG 30.3 PG Mean Corpuscular Hemoglobin Concent 32.6 % 33.0 % Red Cell Distribution Width 12.8 % 12.4 % Platelet Count 140 TH/MM3 160 TH/MM3 Mean Platelet Volume 7.6 FL 7.9 FL Neutrophils (%) (Auto) 65.4 % 59.5 % Lymphocytes (%) (Auto) 22.2 % 27.7 % Monocytes (%) (Auto) 7.2 % 7.8 % Eosinophils (%) (Auto) 4.5 % 4.3 % Basophils (%) (Auto) 0.7 % 0.7 % Neutrophils # (Auto) 2.2 TH/MM3 1.9 TH/MM3 Lymphocytes # (Auto) 0.8 TH/MM3 0.9 TH/MM3 Monocytes # (Auto) 0.2 TH/MM3 0.3 TH/MM3 Eosinophils # (Auto) 0.2 TH/MM3 0.1 TH/MM3 Basophils # (Auto) 0.0 TH/MM3 0.0 TH/MM3 CBC Comment DIFF FINAL DIFF FINAL Differential Comment Vancomycin Level Trough 8.4 MCG/ML Test 05/01/18 05:25 White Blood Count 3.7 TH/MM3 Red Blood Count 3.94 MIL/MM3 Hemoglobin 11.9 GM/DL Hematocrit 36.1 % Mean Corpuscular Volume 91.7 FL Mean Corpuscular Hemoglobin 30.3 PG Mean Corpuscular Hemoglobin Concent 33.1 % Red Cell Distribution Width 12.6 % Platelet Count 153 TH/MM3 Mean Platelet Volume 7.8 FL Neutrophils (%) (Auto) 53.2 % Lymphocytes (%) (Auto) 34.5 % Monocytes (%) (Auto) 8.7 % Eosinophils (%) (Auto) 3.2 % Basophils (%) (Auto) 0.4 % Neutrophils # (Auto) 2.0 TH/MM3 Lymphocytes # (Auto) 1.3 TH/MM3 Monocytes # (Auto) 0.3 TH/MM3 Eosinophils # (Auto) 0.1 TH/MM3 Basophils # (Auto) 0.0 TH/MM3 CBC Comment DIFF FINAL Differential Comment Blood Urea Nitrogen 11 MG/DL Creatinine 1.35 MG/DL Random Glucose 82 MG/DL Total Protein 5.7 GM/DL Albumin 2.8 GM/DL Calcium Level 8.2 MG/DL Phosphorus Level 2.9 MG/DL Magnesium Level 1.9 MG/DL Alkaline Phosphatase 47 U/L Aspartate Amino Transf (AST/SGOT) 34 U/L Alanine Aminotransferase (ALT/SGPT) 51 U/L Total Bilirubin 0.3 MG/DL Sodium Level 144 MEQ/L Potassium Level 4.3 MEQ/L Chloride Level 107 MEQ/L Carbon Dioxide Level 30.5 MEQ/L Anion Gap 7 MEQ/L Estimat Glomerular Filtration Rate 54 ML/MIN Hemoglobin A1c 5.7 % Free Thyroxine 1.16 NG/DL Thyroid Stimulating Hormone 3rd Gen 4.480 uIU/ML Imaging Last Impressions Foot MRI 04/28/18 0000 Signed Impressions: CONCLUSION: 1. No definite area of osteomyelitis is identified. There is a focal area of m ild increased T2 signal and enhancement within the distal first metatarsal. How ever, there is no T1 signal in this area to definitively indicate osteomyelitis . 2. There is diffuse edema of the right foot. 3. Focal area of susceptibility artifact is identified between the third and f ourth digits. This is from uncertain etiology. No metallic foreign body is seen on the plain film examination from yesterday. Foot X-Ray 04/27/18 0000 Signed Impressions: CONCLUSION: Negative examination Objective Remarks GENERAL: Awake alert and oriented 3 talkative and cooperative. SKIN: Warm and dry. Right foot is dressed-right groin with area of induration improved HEAD: Atraumatic. Normocephalic. EYES: Pupils equal and round. No scleral icterus. No injection or drainage. ENT: No nasal bleeding or discharge. Mucous membranes pink and moist. NECK: Trachea midline. No JVD. CARDIOVASCULAR: Regular rate and rhythm. S1-S2 no S3 or S4 RESPIRATORY: No accessory muscle use. Clear to auscultation. Breath sounds equal bilaterally. GASTROINTESTINAL: Abdomen soft, non-tender, nondistended. Hepatic and splenic margins not palpable. MUSCULOSKELETAL: Extremities without clubbing, cyanosis, or edema. No obvious deformities. NEUROLOGICAL: Awake and alert. No obvious cranial nerve deficits. Motor grossly within normal limits. Five out of 5 muscle strength in the arms and legs. Normal speech. PSYCHIATRIC: Appropriate mood and affect; insight and judgment normal. Procedures Incision and drainage of right foot wound by podiatry on April 29 Medications and IVs Current Medications Vancomycin HCl 1000 mg/Sodium Chloride 250 ml @ 250 mls/hr ONCE ONCE IV Last administered on 04/27/18at 09:35; Start 04/27/18 at 09:30; Stop 04/27/18 at 10:29; Status DC Morphine Sulfate (Morphine Inj) 4 mg ONCE ONCE IV PUSH Last administered on 10:43; Start 04/27/18 at 10:30; Stop 04/27/18 at 10:31; Status DC Ondansetron HCl (Zofran Odt) 4 mg ONCE ONCE PO Last administered on 04/27/18at 10:43; Start 04/27/18 at 10:30; Stop 04/27/18 at 10:31; Status DC Heparin Sodium (Porcine) (Heparin Inj) 5,000 units Q8H SQ Last administered on 05/01/18at 11:30; Start 04/27/18 at 13:00 Acetaminophen/ Hydrocodone Bitart ([place] 5-325 Mg) 1 tab Q4H PRN PO PAIN SCALE 3 TO 5 Last administered on 04/29/18at 00:17; Start 04/27/18 at 12:15 Acetaminophen/ Hydrocodone Bitart ([place] 10-325 Mg) 1 tab Q4H PRN PO PAIN SCALE 6 TO 10 Last administered on 05/01/18at 13:52; Start 04/27/18 at 12:15 Morphine Sulfate (Morphine Inj) 4 mg Q3H PRN IV PUSH BREAKTHROUGH PAIN Last administered on 05/01/18at 11:31; Start 04/27/18 at 12:15 Naloxone HCl (Narcan Inj) 0.4 mg UNSCH PRN IV PUSH SEE LABEL COMMENTS; Start at 12:15 Senna/Docusate Sodium (Sabra-Colace) 1 tab BID PO Last administered on at 07:37; Start 04/27/18 at 21:00 Magnesium Hydroxide (Milk Of Magnesia Liq) 30 ml Q12H PRN PO Mild constipation ; Start 04/27/18 at 12:15 Sennosides (Senokot) 17.2 mg Q12H PRN PO Moderate constipation; Start 04/27/18 at 12:15 Pharmacy Profile Note 0 ml @ 0 mls/hr UNSCH OTHER ; Start 04/27/18 at 12:15 Vancomycin HCl 1250 mg/Sodium Chloride 262.5 ml @ 250 mls/hr Q18H IV Last administered on 04/30/18at 10:02; Start 04/28/18 at 03:00; Stop 04/30/18 at 10:37; Status DC Miscellaneous Information ([facility] [place] [facility] Ordered Lab Info) SPECIFIC LAB TO BE DRAWN:VANCO TROUGH DATE TO BE DRRadha.. ONCE ONCE .XX ; Start 04/29/18 at 14:45; Stop 04/29/18 at 14:46; Status DC Ketorolac Tromethamine (Toradol Inj) 30 mg ONCE ONCE IV PUSH Last administered on 04/28/18at 01:52; Start 04/28/18 at 01:30; Stop 04/28/18 at 01:31; Status DC Sodium Chloride 1,000 ml @ 100 mls/hr Q10H IV Last administered on 05/01/18at 11:31; Start 04/28/18 at 01:30 Sodium Chloride 500 ml @ 500 mls/hr BOLUS ONCE IV Last administered on at 14:44; Start 04/28/18 at 13:00; Stop 04/28/18 at 13:59; Status DC Cefepime HCl 2000 mg/Sodium Chloride 100 ml @ 200 mls/hr Q8H IV Last administered on 04/29/18at 15:01; Start 04/28/18 at 13:00; Stop 04/29/18 at 20:57; Status DC Gadodiamide (Omniscan Pf Inj) 15 ml STK-MED ONCE IVCONTRAST Last administered on 04/28/18at 19:28; Start 04/28/18 at 19:28; Stop 04/28/18 at 19:29; Status DC Miscellaneous Information ([facility] [place] [facility] Ordered Lab Info) SPECIFIC LAB TO BE DRAWN:VANCO TROUGH DATE TO BE DR... ONCE ONCE .XX ; Start 05/03/18 at 08:45; Stop 05/03/18 at 08:46 Lidocaine/ Epinephrine (Xylocaine-Epi 1%-1:100,000 Inj) 50 ml STK-MED ONCE .ROUTE ; Start 04/29/18 at 22:03; Stop 04/29/18 at 22:04; Status DC Lidocaine HCl (Xylocaine 1% Inj (50 ml)) 50 ml STK-MED ONCE .ROUTE ; Start at 22:07; Stop 04/29/18 at 22:08; Status DC Vancomycin HCl 1750 mg/Sodium Chloride 517.5 ml @ 250 mls/hr Q18H IV Last administered on 05/01/18at 03:56; Start 05/01/18 at 03:00 Collagenase (Santyl Oint) 1 applic DAILY TOPICAL ; Start 05/02/18 at 09:00 A/P Assessment and Plan 1. Right foot cellulitis/abscess, wound: Improving. He has history of MRSA infection previously. Wound culture is pending. Continue vancomycin Appreciate infectious disease and podiatry recommendations. Has had incision and drainage of the right foot wound by podiatry 6-8 2. Hypotension: Continue IV fluids. 3. Renal insufficiency: Stable. Uncertain if acute or chronic. Monitor BUN and creatinine. Continue IV fluids. 4. Multiple skin lesions: Patient has areas of scab with surrounding erythema on the nose and behind the left ear. There is also a scabbed wound on the external left ear. AND MULTIPLE LESIONS ON HIS HEAD WELL IN THE LEFT GROIN Continue antibiotics. 5. DVT prophylaxis: Heparin. Left groin lesion has improved with antibiotics- HE STATES IT OPENED BY ITSELF TODAY HOMELESS?? Discharge Planning Pending improvement of the wounds AND ID CLEARANCE Deepak Alvarado DO May 01, 2018 15:17
[2018-05-01 17:30] VITALS: BP 113/58; PULSE 47; RESP 18; TEMP 98.2; O2SAT 98
[2018-05-01 20:00] VITALS: BP 144/66; PULSE 47; RESP 20; TEMP 97.4; O2SAT 100
[2018-05-02] VITALS: BP 115/66; PULSE 45; RESP 20; TEMP 97.5; O2SAT 96
[2018-05-02] MEDS: MORPHINE SULFATE 4 MG/ML INJ IV PUSH PRN ×3 (00:56→20:18)
[2018-05-02] MEDS: ACETAMINOPHEN/HYDROcodone 325 MG/10 MG TAB PO PRN ×5 (04:18→22:26)
[2018-05-02] MEDS: HEPARIN SODIUM - SQ 10,000 UNITS/ML VIAL SQ SCH ×3 (04:18→20:12)
[2018-05-02] MEDS: SODIUM CHLOR 0.9% 1000 ML INJ 1,000 ML IV SCH ×2 (04:20→14:23)
[2018-05-02 08:00] VITALS: BP 131/67; PULSE 47; RESP 19; TEMP 97.4; O2SAT 99
[2018-05-02] MEDS: DOCUSATE SODIUM 50 MG/SENNA 8.6 MG TAB PO SCH ×2 (08:17→20:18)
[2018-05-02] MEDS: COLLAGENASE OINT 30 GM TUBE TOPICAL SCH (08:18)
[2018-05-02 11:03] LABS: AUTOMATED NEUTROPHIL # 2.4 TH/MM3 (1.8-7.7); BASOPHIL % 0.6 % (0.0-2.0); EOSINOPHIL # 0.2 TH/MM3 (0-0.4); EOSINOPHIL % 4.1 % (0.0-4.0); HEMATOCRIT 39.8 % (39.0-51.0); HEMOGLOBIN 13.2 GM/DL (13.0-17.0); LYMPH % 26.2 % (9.0-44.0); MEAN CELL VOLUME 92.3 FL (80.0-100.0); MEAN CORPUSCULAR HEMOGLOBIN 30.5 PG (27.0-34.0); MEAN CORPUSCULAR HGB CONC 33.1 % (32.0-36.0); MEAN PLATELET VOLUME 7.9 FL (7.0-11.0); MONO % 8.3 % (0.0-8.0); MONOCYTE # 0.3 TH/MM3 (0-0.9); NEUT % 60.8 % (16.0-70.0); PLATELET COUNT 143 TH/MM3 (150-450); RED BLOOD COUNT 4.31 MIL/MM3 (4.50-5.90); RED CELL DISTRIBUTION WIDTH 12.5 % (11.6-17.2)
[2018-05-02 11:18] LABS: ALBUMIN 3.2 GM/DL (3.4-5.0); ALT (GPT) 90 U/L (12-78); AST (GOT) 50 U/L (15-37); BLOOD UREA NITROGEN 11 MG/DL (7-18); CALCIUM 8.7 MG/DL (8.5-10.1); CHLORIDE 105 MEQ/L (98-107); CREATININE 1.32 MG/DL (0.60-1.30); GLOMERULAR FILTRATION RATE 56 ML/MIN (>89); GLUCOSE,RANDOM 95 MG/DL (74-106); MAGNESIUM 1.9 MG/DL (1.5-2.5); PHOSPHORUS 2.9 MG/DL (2.5-4.9); SODIUM (NA) 141 MEQ/L (136-145)
[2018-05-02 11:21] LABS: ALKALINE PHOSPHATASE 58 U/L (45-117); TOTAL BILIRUBIN ADULT 0.4 MG/DL (0.2-1.0); TOTAL PROTEIN 6.5 GM/DL (6.4-8.2)
[2018-05-02 12:00] VITALS: BP 118/61; PULSE 49; RESP 18; TEMP 97.9; O2SAT 99
[2018-05-02] MEDS: VANCOMYCIN INJ 1,750 MG in SODIUM CHLORID 0.9% 500 ML INJ 500 ML IV SCH (14:21)
[2018-05-02 16:00] VITALS: BP 117/65; PULSE 66; RESP 18; TEMP 97.9; O2SAT 100
--- NOTE | 2018-05-02 16:27 | HHI.PR ---
Subjective Remarks Patient reports the swelling on the right leg is much better. He still experiencing pain on the right foot. Objective Vitals Vital Signs Date Time Temp Pulse Resp B/P (MAP) Pulse Ox O2 Delivery O2 Flow Rate FiO2 05/02/18 12:00 97.9 49 18 118/61 (80) 99 05/02/18 08:00 97.4 47 19 131/67 (88) 99 05/02/18 05:31 20 05/02/18 02:52 20 05/02/18 00:00 97.5 45 20 115/66 (82) 96 05/01/18 20:00 97.4 47 20 144/66 (92) 100 05/01/18 17:30 98.2 47 18 113/58 (76) 98 I/O 05/01/18 05/01/18 05/01/18 05/02/18 05/02/18 05/02/18 06:59 14:59 22:59 06:59 14:59 22:59 Intake Total 360 ml 1440 ml 360 ml Balance 360 ml 1440 ml 360 ml Intake Oral 360 ml 1440 ml 360 ml # Voids 3 8 3 # Bowel Movements 0 1 0 Result Diagram: 05/02/18 0953 05/02/18 0953 Objective Remarks GENERAL: This is a well-nourished, well-developed patient, in no apparent distress. CARDIOVASCULAR: Normal rate and regular rhythm without murmurs, gallops, or rubs. RESPIRATORY: Good respiratory efforts. Breath sounds equal and clear to auscultation bilaterally. NEURO: Alert & Oriented x4 to person, place, time, situation. Moves all ext x4 PSYCH: Appropriate mood and affect. Procedures Incision and drainage of right foot wound by podiatry on April 29 A/P Assessment and Plan 57-year-old male with Right foot cellulitis/abscess, wound: Much improved. He has history of MRSA infection previously. Wound culture growing MSSA and group A strep. Continue vancomycin per infectious disease. Has had incision and drainage of the right foot wound by podiatry 04/29. Patient is cleared by podiatry for discharge. Awaiting further recommendations from infectious disease Renal insufficiency: Stable. Uncertain if acute or chronic. Monitor BUN and creatinine. Continue IV fluids. Multiple skin lesions: Patient has areas of scab with surrounding erythema on the nose and behind the left ear. There is also a scabbed wound on the external left ear. -Patient is advised to follow-up with PCP for dermatology referral for biopsy. DVT prophylaxis: Heparin. Discharge Planning Infectious disease to evaluate for discharge antibiotics recommendations. Ilene Che MD May 02, 2018 16:27
[2018-05-02] MEDS ORDERED: HYDR-3516 PO (16:28)
[2018-05-02 20:00] VITALS: BP 110/63; PULSE 49; RESP 18; TEMP 98.5; O2SAT 100
[2018-05-03] VITALS: BP 114/62; PULSE 52; RESP 17; TEMP 98; O2SAT 100
[2018-05-03] MEDS: SODIUM CHLOR 0.9% 1000 ML INJ 1,000 ML IV SCH ×2 (01:55→12:46)
[2018-05-03] MEDS: MORPHINE SULFATE 4 MG/ML INJ IV PUSH PRN ×2 (01:56→08:46)
[2018-05-03] MEDS: ACETAMINOPHEN/HYDROcodone 325 MG/10 MG TAB PO PRN ×3 (05:02→15:06)
[2018-05-03] MEDS: HEPARIN SODIUM - SQ 10,000 UNITS/ML VIAL SQ SCH ×2 (05:03→12:52)
[2018-05-03 07:35] LABS: CREATININE 1.25 MG/DL (0.60-1.30)
[2018-05-03 08:00] VITALS: BP 118/65; PULSE 42; RESP 16; TEMP 97.3; O2SAT 98
[2018-05-03] MEDS: VANCOMYCIN INJ 1,750 MG in SODIUM CHLORID 0.9% 500 ML INJ 500 ML IV SCH (08:39)
[2018-05-03] MEDS: DOCUSATE SODIUM 50 MG/SENNA 8.6 MG TAB PO SCH (08:39)
[2018-05-03] MEDS ORDERED: PHARMACY ORDERED LAB ONE (08:45)
[2018-05-03] MEDS: COLLAGENASE OINT 30 GM TUBE TOPICAL SCH (08:47)
--- NOTE | 2018-05-03 10:33 | HHI.IDPN ---
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 Vital Signs Date Time Temp Pulse Resp B/P (MAP) Pulse Ox O2 Delivery O2 Flow Rate FiO2 05/03/18 08:00 97.3 42 16 118/65 (82) 98 05/03/18 00:00 98.0 52 17 114/62 (79) 100 05/02/18 20:00 98.5 49 18 110/63 (79) 100 05/02/18 16:00 97.9 66 18 117/65 (82) 100 05/02/18 12:00 97.9 49 18 118/61 (80) 99 . Laboratory Tests Test 05/02/18 09:53 White Blood Count 4.0 TH/MM3 Red Blood Count 4.31 MIL/MM3 Hemoglobin 13.2 GM/DL Hematocrit 39.8 % Mean Corpuscular Volume 92.3 FL Mean Corpuscular Hemoglobin 30.5 PG Mean Corpuscular Hemoglobin Concent 33.1 % Red Cell Distribution Width 12.5 % Platelet Count 143 TH/MM3 Mean Platelet Volume 7.9 FL Neutrophils (%) (Auto) 60.8 % Lymphocytes (%) (Auto) 26.2 % Monocytes (%) (Auto) 8.3 % Eosinophils (%) (Auto) 4.1 % Basophils (%) (Auto) 0.6 % Neutrophils # (Auto) 2.4 TH/MM3 Lymphocytes # (Auto) 1.0 TH/MM3 Monocytes # (Auto) 0.3 TH/MM3 Eosinophils # (Auto) 0.2 TH/MM3 Basophils # (Auto) 0.0 TH/MM3 CBC Comment DIFF FINAL Differential Comment Laboratory Tests Test 05/02/18 09:53 05/03/18 06:20 Blood Urea Nitrogen 11 MG/DL Creatinine 1.32 MG/DL 1.25 MG/DL Random Glucose 95 MG/DL Total Protein 6.5 GM/DL Albumin 3.2 GM/DL Calcium Level 8.7 MG/DL Phosphorus Level 2.9 MG/DL Magnesium Level 1.9 MG/DL Alkaline Phosphatase 58 U/L Aspartate Amino Transf (AST/SGOT) 50 U/L Alanine Aminotransferase (ALT/SGPT) 90 U/L Total Bilirubin 0.4 MG/DL Sodium Level 141 MEQ/L Potassium Level 4.2 MEQ/L Chloride Level 105 MEQ/L Carbon Dioxide Level 29.0 MEQ/L Anion Gap 7 MEQ/L Estimat Glomerular Filtration Rate 56 ML/MIN 59 ML/MIN Imaging Last Impressions Foot MRI 04/28/18 Signed Impressions: CONCLUSION: 1. No definite area of osteomyelitis is identified. There is a focal area of m ild increased T2 signal and enhancement within the distal first metatarsal. How ever, there is no T1 signal in this area to definitively indicate osteomyelitis . 2. There is diffuse edema of the right foot. 3. Focal area of susceptibility artifact is identified between the third and f ourth digits. This is from uncertain etiology. No metallic foreign body is seen on the plain film examination from yesterday. Foot X-Ray 04/27/18 Signed Impressions: CONCLUSION: Negative examination Physical Exam CONSTITUTIONAL/GENERAL: This is an adequately nourished patient, in no apparent distress. TUBES/LINES/DRAINS: SKIN: No jaundice, rashes, or lesions. Ecchymoses on upper extremities. No wounds seen anteriorly. Skin temperature appropriate. Not diaphoretic. HEAD: Atraumatic. Normocephalic. Multiple hard crusted skin lesions on the scalp - resolved ENT: Hearing grossly normal. Nose without bleeding or purulent drainage. Dentition poor Partially excised toungue. Oral ulcer Firm small regional lymph nodules CARDIOVASCULAR: Regular rate and rhythm Peripheral pulses symmetric. RESPIRATORY/CHEST: Symmetric, unlabored respirations. GASTROINTESTINAL: Abdomen soft, non-tender, nondistended. MUSCULOSKELETAL: Extremities without clubbing, cyanosis No joint tenderness or effusion noted. No calf tenderness. No mottling or clubbing. STATUS LOCALIS: R foot with open 2- 3 cm ulcer no drainage, lesion is dry minimla edema of the ankle, no erythema NEUROLOGICAL: Awake and alert. non focvals. PSYCHIATRIC: No obvious anxiety/depression. no apparent hallucinations or other psychotic thought process. Assessment & Plan Remarks R foot infected wound, cellulitis - MSSA, GAS Hypotension Sepsis ARF Itching skin lesion s Allergic to cephalosporins, - dc vancomycin - clindamycin 300 mg PO qid x 7-10 days OK to dc [pt home dw micro lab: will ad clindamycin to S ShakaMerari A. MD May 03, 2018 10:33
[2018-05-03 12:00] VITALS: BP 109/58; PULSE 52; RESP 16; TEMP 97.6; O2SAT 99
[2018-05-03] MEDS ORDERED: CLIN300C5 PO (13:22)
--- NOTE | 2018-05-03 13:23 | HHI.DS ---
Discharge Summary Admission Date Apr 28, 2018 at 10:00 Discharge Date: May 03, 2018 Admitting Diagnosis R foot cellulitis (1) Wound of right foot ICD Code: S91.302A - Unspecified open wound, left foot, initial encounter (2) Cellulitis of right foot ICD Code: L03.115 - Cellulitis of right lower limb Status: Acute Procedures Incision and drainage of right foot wound by podiatry on April 29 Brief History - From Admission HPI from the admitting physician 57 years old male presented to the ED with a right dorsal foot infection which started 5 days ago after he scraped his foot with his own bed, patient was referred from his PCP office to get IV antibiotic for what suspecting MRSA infection, patient denied significant fever or chills he reported severe pain in his foot close to 9 out of 10, he reported multiple area of skin abscess and skin infection over his called arms chest and legs in different age of healing some of it with crusted drainage also suspecting of's strep infection. CBC/BMP: 05/02/18 0953 05/03/18 0620 Significant Findings Laboratory Tests Test 04/30/18 14:38 05/01/18 05:25 05/02/18 09:53 05/03/18 06:20 White Blood Count 3.2 TH/MM3 (4.0-11.0) 3.7 TH/MM3 (4.0-11.0) Red Blood Count 4.04 MIL/MM3 (4.50-5.90) 3.94 MIL/MM3 (4.50-5.90) 4.31 MIL/MM3 (4.50-5.90) Hemoglobin 12.2 GM/DL (13.0-17.0) 11.9 GM/DL (13.0-17.0) Hematocrit 37.0 % (39.0-51.0) 36.1 % (39.0-51.0) Eosinophils (%) (Auto) 4.3 % (0.0-4.0) 4.1 % (0.0-4.0) Lymphocytes # (Auto) 0.9 TH/MM3 (1.0-4.8) Calcium Level 8.3 MG/DL (8.5-10.1) 8.2 MG/DL (8.5-10.1) Estimat Glomerular Filtration Rate 58 ML/MIN (>89) 54 ML/MIN (>89) 56 ML/MIN (>89) 59 ML/MIN (>89) Monocytes (%) (Auto) 8.7 % (0.0-8.0) 8.3 % (0.0-8.0) Creatinine 1.35 MG/DL (0.60-1.30) 1.32 MG/DL (0.60-1.30) Total Protein 5.7 GM/DL (6.4-8.2) Albumin 2.8 GM/DL (3.4-5.0) 3.2 GM/DL (3.4-5.0) Thyroid Stimulating Hormone 3rd Gen 4.480 uIU/ML (0.358-3.740) Platelet Count 143 TH/MM3 (150-450) Aspartate Amino Transf (AST/SGOT) 50 U/L (15-37) Alanine Aminotransferase (ALT/SGPT) 90 U/L (12-78) Test 05/03/18 08:40 Vancomycin Level Trough 16.8 MCG/ML (5.0-10.0) Imaging Last Impressions Foot MRI 04/28/18 0000 Signed Impressions: CONCLUSION: 1. No definite area of osteomyelitis is identified. There is a focal area of m ild increased T2 signal and enhancement within the distal first metatarsal. How ever, there is no T1 signal in this area to definitively indicate osteomyelitis . 2. There is diffuse edema of the right foot. 3. Focal area of susceptibility artifact is identified between the third and f ourth digits. This is from uncertain etiology. No metallic foreign body is seen on the plain film examination from yesterday. Foot X-Ray 04/27/18 0000 Signed Impressions: CONCLUSION: Negative examination PE at Discharge GENERAL: This is a well-nourished, well-developed patient, in no apparent distress. CARDIOVASCULAR: Normal rate and regular rhythm without murmurs, gallops, or rubs. RESPIRATORY: Good respiratory efforts. Breath sounds equal and clear to auscultation bilaterally. NEURO: Alert & Oriented x4 to person, place, time, situation. Moves all ext x4 PSYCH: Appropriate mood and affect. Pt update on day of discharge Patient reports he is feeling well today. DC planning discussed at length. He needs to follow up with his PCP. Hospital Course 57-year-old male admitted and treated for the following: Right foot cellulitis/abscess, wound: resolving. He has history of MRSA infection previously. Wound culture growing MSSA and group A strep. Treated with vancomycin per infectious disease. Has had incision and drainage of the right foot wound by podiatry 04/29. Patient is cleared by podiatry for discharge. He is discharged on Clindamycin for 7 more days. Patient to follow up with PCP and wound care clinic. Renal insufficiency: Treated with IVF. renal functions improved. Multiple skin lesions: Patient has areas of scab with surrounding erythema on the nose and behind the left ear. There is also a scabbed wound on the external left ear. -Patient is advised to follow-up with PCP for dermatology referral for biopsy. Pt Condition on Discharge: Good Discharge Disposition: Disch w/ Home Health Serv Discharge Time: > 30 minutes Discharge Instructions DIET: Follow Instructions for: Heart Healthy Diet Activities you can perform: Regular-No Restrictions Follow up Referrals: PCP Follow-up Wound Care Clinic - 1 Week @ [facility] New Medications: Clindamycin (Clindamycin) 300 Mg Cap 300 MG PO Q6H for Infection, #28 CAP 0 Refills Hydrocodone/Acetaminophen (Hydrocodone-Acetamin 5-325 mg) 5 Mg-325 Mg Tablet 1 TAB PO Q4H PRN for PAIN GREATER THAN 5, #15 TAB Ilene Che MD May 03, 2018 13:23
--- NOTE | 2018-05-03 13:23 | HHI.DCPOC ---
Discharge Care Plan Diagnosis: (1) Cellulitis of right foot (2) Wound of right foot Goals to Promote Your Health * To prevent worsening of your condition and complications * To maintain your health at the optimal level Directions to Meet Your Goals Take your medications as prescribed Follow your dietary instruction Follow activity as directed Keep your appointments as scheduled Take your immunizations and boosters as scheduled If your symptoms worsen call your PCP, if no PCP go to Urgent Care Center or Emergency Room Smoking is Dangerous to Your Health. Avoid second hand smoke Call the 24-hour hour crisis hotline for domestic abuse at Ilene Che MD May 03, 2018 13:23
--- NOTE | 2018-05-03 13:33 | HHI.FF ---
Face to Face Verification Diagnosis: (1) Wound of right foot (2) Cellulitis of right foot Home Health Nursing Order: Medical education Wound care and dressing changes Nursing assessment with vital signs I have seen patient Deejay Rey on 05/03/18. My clinical findings support the need for the requested home health care services because: Limited ability to care for self I certify that my clinical findings support that this patient is homebound because: Need for psychosocial assistance Ilene Che MD May 03, 2018 13:33
[2018-05-04] MEDS ORDERED: VANCOMYCIN INJ 1,750 MG in SODIUM CHLORID 0.9% 500 ML INJ 500 ML IV SCH (09:00)
[2018-05-06] MEDS ORDERED: PHARMACY ORDERED LAB ONE (08:45)
== END 2018-05-03 16:57 | disposition home or self-care (01) | DRG 593 ==
LOC: NEPE 08:04 → INTOOBSV 11:24 → NEDH 11:24 → NEDA 15:02 → NEPHCDU 17:17 → OBSVTOIN 04-28 10:00 → N07B 04-29 23:22
PROVIDERS: ADMIT Hospitalist; ATTEND Hospitalist
PROC: 0HBMXZZ Excision of Right Foot Skin, External Approach (ICD-10-PCS; principal; 2018-04-29)
PROC: 0H9MXZZ Drainage of Right Foot Skin, External Approach (ICD-10-PCS; 2018-04-29)
DX: L97.518 Non-pressure chronic ulcer of other part of right foot with other specified severity (principal); L03.115 Cellulitis of right lower limb; I95.9 Hypotension, unspecified; C06.9 Malignant neoplasm of mouth, unspecified; B95.61 Methicillin susceptible Staphylococcus aureus infection as the cause of diseases classified elsewhere; B95.0 Streptococcus, group A, as the cause of diseases classified elsewhere; S90.811A Abrasion, right foot, initial encounter; W22.8XXA Striking against or struck by other objects, initial encounter; Y92.003 Bedroom of unspecified non-institutional (private) residence as the place of occurrence of the external cause; N28.9 Disorder of kidney and ureter, unspecified; F17.210 Nicotine dependence, cigarettes, uncomplicated; Z86.14 Personal history of Methicillin resistant Staphylococcus aureus infection; L98.9 Disorder of the skin and subcutaneous tissue, unspecified
CPT/HCPCS: 73620; 73720; 80048; 80053; 80202; 82565; 83036; 83605; 83735; 84100; 84439; 84443; 85025; 86403; 87040; 87070; 87147; 87186; 87205; 96365; 96372; 96375; A9579; G0378; J0692; J1644; J1885; J2270; J3370; J7030; J7040; J7050